=== PATIENT | male | born 1965 | race African-American/Black ===

== ENCOUNTER 2016-04-09 21:18 | Emergency (ER) | payer OTHER ==
[~2016-04-09] VITALS: Ht 182.9 cm; Wt 77.1 kg
[~2016-04-09 21:18] MED LIST: ALBU0.63 IH; FLUT1DIS IH; FLUT1DIS3 IH; PRED20TA PO
--- NOTE | 2016-04-09 21:57 | PHYS DOC ---
Past Medical History Past Medical History: COPD Past Surgical History: Appendectomy, Other Additional Past Surgical Histo: PINS R ARM Alcohol Use: Occasionally Drug Use: None Adult General Chief Complaint Chief Complaint: SHORTNESS OF BREATH HPI HPI Patient is a 51 year old female who presents with cough, shortness of breath. Patient reports since yesterday he has been coughing, feeling short of breath, wheezing, had fever, and generally achy. No clear inciting or mitigating factors. He has used his albuterol MDI at home with insufficient relief. He denies any chest pain. No other acute complaints. Review of Systems Review of Systems Constitutional: Fever Eyes: Denies change in visual acuity or eye pain HENT: Denies nasal congestion or sore throat Respiratory: Cough, shortness of breath Cardiovascular: Denies chest pain GI: Denies abdominal pain, nausea, vomiting, bloody stools or diarrhea : Denies dysuria or hematuria Musculoskeletal: Myalgias Integument: Denies rash or skin lesions Neurologic: Denies headache, focal weakness or sensory changes Current Medications Current Medications Current Medications Medications (Trade) Dose Ordered Sig/Laila Start Time Stop Time Status Last Admin Dose Admin Acetaminophen (Tylenol) 1,000 mg 1X ONCE 04/09/16 22:30 04/09/16 22:31 DC 04/09/16 22:15 1,000 MG Albuterol/ Ipratropium (Duoneb) 3 ml 1X ONCE 04/09/16 22:30 04/09/16 22:31 DC 04/09/16 23:33 3 ML Prednisone (Prednisone) 60 mg 1X ONCE 04/09/16 22:30 04/09/16 22:31 DC 04/09/16 22:15 60 MG Sodium Chloride (Iv Sodium Chloride 0.9% 1000ml Bag) 1,000 ml @ 1,000 mls/hr Q1H 04/09/16 21:57 04/10/16 00:14 DC 04/09/16 23:57 1,000 MLS/HR Allergies Allergies Allergies Coded Allergies Type Severity Reaction Last Updated Verified No Known Drug Allergies 01/26/13 No Physical Exam Physical Exam Constitutional: Well developed, well nourished, no acute distress, non-toxic appearance HENT: Normocephalic, atraumatic, bilateral external ears normal Eyes: EOMI, conjunctiva normal, no discharge Neck: Normal range of motion, no stridor Cardiovascular: Tachycardic, regular rhythm, no murmur Lungs & Thorax: Faint, diffuse expiratory wheezing, poor air movement; occasional cough Abdomen: Bowel sounds normal, soft, non-distended, no TTP Skin: Hot to touch, dry, no erythema, no rash Extremities: No obvious deformity, no edema Neurologic: Alert and oriented X 3, no gross deficits noted Psychologic: Affect normal, judgement normal, mood normal Current Patient Data Vital Signs Vital Signs Date Time Temp Pulse Resp B/P Pulse Ox O2 Delivery O2 Flow Rate FiO2 04/09/16 23:33 96 Room Air 04/09/16 21:40 101.4 124 18 156/75 101.4 Lab Values Laboratory Tests Test 04/09/16 21:32 04/09/16 21:45 04/09/16 23:23 White Blood Count 5.5x10^3/uL (4.0-11.0) Red Blood Count 5.13x10^6/uL (4.30-5.70) Hemoglobin 14.8g/dL (13.0-17.5) Hematocrit 45.2% (39.0-53.0) Mean Corpuscular Volume 88fL (79-100) Mean Corpuscular Hemoglobin 29pg (25-35) Mean Corpuscular Hemoglobin Concent 33g/dL (31-37) Red Cell Distribution Width 13.8% (11.5-14.5) Platelet Count 235x10^3/uL (140-400) Neutrophils (%) (Auto) 60% (31-73) Lymphocytes (%) (Auto) 23% (24-48) L Monocytes (%) (Auto) 11% (0-9) H Eosinophils (%) (Auto) 6% (0-3) H Basophils (%) (Auto) 1% (0-3) Neutrophils # (Auto) 3.3x10^3uL (1.8-7.7) Lymphocytes # (Auto) 1.3x10^3/uL (1.0-4.8) Monocytes # (Auto) 0.6x10^3/uL (0.0-1.1) Eosinophils # (Auto) 0.3x10^3/uL (0.0-0.7) Basophils # (Auto) 0.0x10^3/uL (0.0-0.2) Sodium Level 142mmol/L (136-145) Potassium Level 4.1mmol/L (3.5-5.1) Chloride Level 103mmol/L (98-107) Carbon Dioxide Level 26mmol/L (21-32) Anion Gap 13 (6-14) Blood Urea Nitrogen 10mg/dL (8-26) Creatinine 1.1mg/dL (0.7-1.3) Estimated GFR (Cockcroft-Gault) 85.7 BUN/Creatinine Ratio 9 (6-20) Glucose Level 114mg/dL (70-99) H Lactic Acid Level 1.3mmol/L (0.4-2.0) 0.8mmol/L (0.4-2.0) Calcium Level 9.5mg/dL (8.5-10.1) Total Bilirubin 0.4mg/dL (0.2-1.0) Aspartate Amino Transferase (AST) 20U/L (15-37) Alanine Aminotransferase (ALT) 22U/L (16-63) Alkaline Phosphatase 57U/L (46-116) Troponin I Quantitative < 0.017ng/mL (0.000-0.055) Total Protein 7.9g/dL (6.4-8.2) Albumin 4.2g/dL (3.4-5.0) Albumin/Globulin Ratio 1.1 (1.0-1.7) Influenza Type A Antigen Negative (NEGATIVE) Influenza Type B Antigen Negative (NEGATIVE) Laboratory Tests 04/09/16 21:32 Laboratory Tests 04/09/16 21:32 EKG EKG EKG (my read): sinus tachycardia, rate 115, normal axis, no acute ischemic changes Radiology/Procedures Radiology/Procedures CXR (my read): No significant change from prior Course & Med Decision Making Course & Med Decision Making Pertinent Labs and Imaging studies reviewed. (See chart for details) Patient is 51-year-old male who presents with cough, shortness of breath, fever. Appears to have COPD exacerbation, possibly related to upper respiratory infection. Will check EKG, chest x-ray, labs to evaluate. Breathing treatment, steroids, IV fluids ordered. Acetaminophen given for fever. EKG and chest x-ray results as above. Lab work unremarkable; white blood count, lactic acid, troponin all within normal limits. After breathing treatments, patient reports symptomatic improvement. Heart rate has normalized after 1 L fluids. I discussed option of admission versus outpatient management with close outpatient follow-up. Patient would like to go home at this time. Will discharge with prescription for steroid Oscar yoo. Given instructions for close follow-up and strict return precautions. Dragon Disclaimer Dragon Disclaimer This electronic medical record was generated, in whole or in part, using a voice recognition dictation system. Departure Departure Impression: Primary Impression: COPD exacerbation Additional Impression: Upper respiratory infection Disposition: HOME, SELF-CARE Condition: IMPROVED Referrals: MANNY FORMAN MD (PCP) Patient Instructions: Chronic Obstructive Pulmonary Disease Exacerbation, Upper Respiratory Infection, Adult Additional Instructions: Thank you for allowing us to provide care today in the Emergency Department. Take the provided medication as directed. You can take acetaminophen, naproxen, or ibuprofen for any further fever or aches. Follow the directions on the label. Also continue to use your albuterol inhaler as needed. Schedule a follow up appointment with your primary care doctor as soon as possible. Return promptly to the Emergency Department if you develop any new or concerning symptoms. Scripts Prednisone 50 Mg Tablet1 Tab PO DAILY #4 TAB Prov:SUJIT VILLARREAL MD 04/10/16 Azithromycin (Azithromycin Tablet)250 Mg Tablet1 Pkg PO UD #6 TAB Prov:SUJIT VILLARREAL MD 04/10/16 Problem Qualifiers SUJIT VILLARREAL MD Apr 09, 2016 21:57
[2016-04-09 22:15] LABS: BASO % 1 % (0-3); EOS % 6 % (0-3); HEMATOCRIT 45.2 % (39.0-53.0); HEMOGLOBIN 14.8 g/dL (13.0-17.5); LYMPH # 1.3 x10^3/uL (1.0-4.8); LYMPH % 23 % (24-48); MEAN CORPUSCULAR HEMOGLOBIN 29 pg (25-35); MEAN CORPUSCULAR HGB CONC 33 g/dL (31-37); MEAN CORPUSCULAR VOLUME 88 fL (79-100); MONO % 11 % (0-9); NEUT % 60 % (31-73); PLATELET COUNT 235 x10^3/uL (140-400); RED BLOOD COUNT 5.13 x10^6/uL (4.30-5.70); RED CELL DISTRIBUTION WIDTH 13.8 % (11.5-14.5); WHITE BLOOD COUNT 5.5 x10^3/uL (4.0-11.0)
[2016-04-09] MEDS: IV NORMAL SALINE 1000ML BAG 1,000 ML IV SCH ×3 (22:15→23:57)
[2016-04-09 22:29] LABS: CALCIUM 9.5 mg/dL (8.5-10.1); CREATININE 1.1 mg/dL (0.7-1.3); GFR 85.7; POTASSIUM 4.1 mmol/L (3.5-5.1)
[2016-04-09 22:30] LABS: OBC FLU VALID
[2016-04-09] MEDS ORDERED: PREDNISONE 20 MG TABLET PO ONE (22:30)
[2016-04-09] MEDS ORDERED: IPRATRPIUM/ALBUTEROL 0.5/2.5MG 3 ML NEBU. NEB ONE (22:30)
[2016-04-09] MEDS ORDERED: ACETAMINOPHEN 500 MG TABLET PO ONE (22:30)
[2016-04-09 22:43] LABS: ALBUMIN 4.2 g/dL (3.4-5.0); ALBUMIN/GLOBULIN RATIO 1.1 (1.0-1.7); TOTAL BILIRUBIN 0.4 mg/dL (0.2-1.0); TOTAL PROTEIN 7.9 g/dL (6.4-8.2)
[2016-04-10 00:13] VITALS: BP 106/69
[2016-04-10] MEDS ORDERED: AZIT250T6 PO (00:20)
[2016-04-10] MEDS ORDERED: PRED50TA PO (00:20)
--- NOTE | 2016-04-10 08:29 | RAD ---
Examination: 2 views of chest. History: History of cough, shortness of breath Comparison: 04/24/2014 Findings: The cardiomediastinal silhouette grossly appears unremarkable. Lucencies identified in the bilateral upper lobes likely emphysematous changes grossly appears similar to prior exam. Calcified lymph node identified in the left hilum. There is no acute infiltrate identified. Impression: Emphysematous changes identified in the lungs grossly similar to prior exam.
--- NOTE | 2016-04-10 10:27 | EKG ---
[facility] [address] [place] [address] Test Date: 2016-04-09 Test Time: 21:33:54 Pat Name: SAV MEREDITH Department: Room: Gender: M Extractions Technician: : 1965 Requested By: SUJIT VILLARREAL Order Number: [id number] Reading MD: Kunal Sylvester Measurements Intervals [place] Rate: 115 P: 22 OK: 126 QRS: 67 QRSD: 86 T: 48 QT: 292 QTc: 406 Interpretive Statements SINUS TACHYCARDIA OTHERWISE NORMAL ECG RI6.01 Unconfirmed report Compared to ECG 11/04/2013 23:52:14 Sinus rhythm no longer present Electronically Signed On 04-12-2016 14:01:21 LENS DOTTER by Kunal Sylvester
== END 2016-04-10 00:39 | disposition home or self-care (01) ==
LOC: ER 21:18
DX: J44.1 Chronic obstructive pulmonary disease with (acute) exacerbation (principal); J06.9 Acute upper respiratory infection, unspecified; R50.9 Fever, unspecified
CPT/HCPCS: 36415; 71020; 80053; 83605; 84484; 85027; 87040; 87804; 93005; 94640; 96360; 96361; 99285; J7030; J7512; J7620

== ENCOUNTER 2016-04-11 10:45 | Emergency (ER) | payer OTHER ==
[~2016-04-11] VITALS: Ht 175.3 cm; Wt 73.5 kg
[~2016-04-11 10:45] MED LIST changes: +AZIT250T6 PO; +PRED50TA PO
[2016-04-11] MEDS ORDERED: IPRATRPIUM/ALBUTEROL 0.5/2.5MG 3 ML NEBU. NEB ONE (11:15)
--- NOTE | 2016-04-11 11:33 | PHYS DOC ---
Past Medical History Past Medical History: COPD Past Surgical History: Appendectomy, Other Additional Past Surgical Histo: PINS R ARM Alcohol Use: Occasionally Drug Use: None Adult General Chief Complaint Chief Complaint: COUGH HPI HPI Patient is a 51 year old male currently being treated for COPD exacerbation with azithromycin and prednisone who presents by EMS for episode of dyspnea and coughing fit after laughing. States he has been having symptoms like this since last evaluation in the ER 2 days ago. He has been taking azithromycin and prednisone as prescribed. He has been using her home nebulizer intermittently as well as using home albuterol inhaler intermittently. He used home albuterol inhaler this morning and then called EMS because his symptoms were not resolving fast enough. Upon arrival of EMS, his symptoms had resolved but he wanted to be evaluated anyways. He denies new symptoms prior evaluation such as chest pain, hemoptysis, abdominal pain, nausea or vomiting, or diarrhea. Review of Systems Review of Systems Constitutional: Denies fever or chills [] Eyes: Denies change in visual acuity, redness, or eye pain [] HENT: Denies nasal congestion or sore throat [] Respiratory: Denies cough or shortness of breath [] Cardiovascular: No additional information not addressed in HPI [] GI: Denies abdominal pain, nausea, vomiting, bloody stools or diarrhea [] : Denies dysuria or hematuria [] Musculoskeletal: Denies back pain or joint pain [] Integument: Denies rash or skin lesions [] Neurologic: Denies headache, focal weakness or sensory changes [] Endocrine: Denies polyuria or polydipsia [] Current Medications Current Medications Current Medications Medications (Trade) Dose Ordered Sig/Laila Start Time Stop Time Status Last Admin Dose Admin Albuterol/ Ipratropium (Duoneb) 3 ml 1X ONCE 04/11/16 11:15 04/11/16 11:16 DC 04/11/16 11:33 3 ML Allergies Allergies Allergies Coded Allergies Type Severity Reaction Last Updated Verified No Known Drug Allergies 01/26/13 No Physical Exam Physical Exam Constitutional: Well developed, well nourished, no acute distress, non-toxic appearance. [] HENT: Normocephalic, atraumatic, bilateral external ears normal, oropharynx moist, no oral exudates, nose normal. [] Eyes: PERRLA, EOMI. [] Neck: Normal range of motion, supple, no stridor. [] Cardiovascular:Heart rate regular rhythm [] Lungs & Thorax: Bilateral breath sounds clear to auscultation; has bronchospastic cough that is dry [] Abdomen: Bowel sounds normal, soft, no tenderness. [] Skin: Warm, dry, no erythema, no rash. [] Back: Normal range of motion. [] Extremities: No tenderness, ROM intact, no edema, no palpable cord. [] Neurologic: Alert and oriented X 3, normal motor function, normal sensory function, no focal deficits noted. [] Psychologic: Affect normal, judgement normal, mood normal. [] Current Patient Data Vital Signs Vital Signs Date Time Temp Pulse Resp B/P Pulse Ox O2 Delivery O2 Flow Rate FiO2 04/11/16 12:30 90 22 135/84 94 04/11/16 11:35 Room Air 04/11/16 10:53 97.7 97.7 Course & Med Decision Making Course & Med Decision Making Pertinent Labs and Imaging studies reviewed. (See chart for details) He feels better after neb here and would like to go home. Discussed proper use of home medications. Return precautions given. He understands and agrees with plan. Dragon Disclaimer Dragon Disclaimer This electronic medical record was generated, in whole or in part, using a voice recognition dictation system. Departure Departure Impression: Primary Impression: COPD exacerbation Disposition: 01 HOME, SELF-CARE Condition: STABLE Referrals: MANNY FORMAN MD (PCP) Patient Instructions: Chronic Obstructive Pulmonary Disease Exacerbation, Easy- to-Read Additional Instructions: Follow-up with your primary care doctor within one week. Return for any concerns. Mat HERNANDEZ MD Apr 11, 2016 11:33
[2016-04-11 12:30] VITALS: BP 135/84
== END 2016-04-11 13:00 | disposition home or self-care (01) ==
LOC: ER 10:45
DX: J44.1 Chronic obstructive pulmonary disease with (acute) exacerbation (principal)
CPT/HCPCS: 94250; 94640; 99283; J7620

== ENCOUNTER 2017-08-04 02:20 | Emergency (ER) | payer OTHER ==
[2017-08-04] MEDS: ALBUTEROL SULFATE 2.5 MG/3 ML NEBU. CONT NEB (02:44)
[2017-08-04] MEDS: IPRATRPIUM/ALBUTEROL 0.5/2.5MG 3 ML NEBU. NEB (02:44)
[2017-08-04 02:50] LABS: ADD MAN DIFF? NO
[2017-08-04] MEDS: methylPREDNISolone SOD SUCC PF 125 MG/2 ML VIAL. IV (02:50)
[2017-08-04] MEDS: IV NORMAL SALINE 1000ML BAG 1,000 ML IV (02:50)
[2017-08-04 02:52] LABS: BASO # 0.1 x10^3/uL (0.0-0.2); BASO % 1 % (0-3); EOS # 0.8 x10^3/uL (0.0-0.7); EOS % 10 % (0-3); HEMOGLOBIN 14.8 g/dL (13.0-17.5); LYMPH # 2.8 x10^3/uL (1.0-4.8); LYMPH % 39 % (24-48); MEAN CORPUSCULAR HEMOGLOBIN 30 pg (25-35); MEAN CORPUSCULAR HGB CONC 34 g/dL (31-37); MEAN CORPUSCULAR VOLUME 88 fL (79-100); MONO # 0.7 x10^3/uL (0.0-1.1); MONO % 9 % (0-9); NEUT % 41 % (31-73); PLATELET COUNT 305 x10^3/uL (140-400); RED BLOOD COUNT 5.03 x10^6/uL (4.30-5.70); RED CELL DISTRIBUTION WIDTH 13.4 % (11.5-14.5); WHITE BLOOD COUNT 7.3 x10^3/uL (4.0-11.0)
[2017-08-04 03:02] LABS: ANION GAP 8 (6-14); BLOOD UREA NITROGEN 17 mg/dL (8-26); BUN/CREATININE RATIO 15 (6-20); CALCIUM 9.4 mg/dL (8.5-10.1); CARBON DIOXIDE 29 mmol/L (21-32); CHLORIDE 104 mmol/L (98-107); CREATININE 1.1 mg/dL (0.7-1.3); GFR 85.4; GLUCOSE 116 mg/dL (70-99); POTASSIUM 3.5 mmol/L (3.5-5.1); SODIUM 141 mmol/L (136-145)
[2017-08-04 03:08] LABS: ALBUMIN 3.7 g/dL (3.4-5.0); ALBUMIN/GLOBULIN RATIO 0.9 (1.0-1.7); ALK PHOS 66 U/L (46-116); ALT (SGPT) 16 U/L (16-63); AST (SGOT) 12 U/L (15-37); TOTAL BILIRUBIN 0.3 mg/dL (0.2-1.0); TOTAL PROTEIN 7.7 g/dL (6.4-8.2)
[2017-08-04 03:10] LABS: TROPONINI < 0.017 ng/mL (0.000-0.055)
[2017-08-04 03:16] LABS: NT-PRO BNP 25 pg/mL (0-124)
[2017-08-04 03:16] LABS: CKMB INDEX 1.1 % (0-4); CREATINE KINASE 87 U/L (39-308)
[2017-08-04] MEDS: IOHEXOL 300 MG/ML 100ML VIAL. IV (03:25)
[2017-08-04] MEDS ORDERED: CONTRAST GIVEN. MC (03:30)
== END 2017-08-04 05:04 | disposition home or self-care (01) ==
LOC: ER 02:20
DX: J44.1 Chronic obstructive pulmonary disease with (acute) exacerbation (principal); Z87.891 Personal history of nicotine dependence
CPT/HCPCS: 36415; 71045; 71275; 80053; 82553; 83880; 84484; 85025; 93005; 94644; 96374; 99285-25; J2930; J7030; J7613; J7620; Q9967

== ENCOUNTER → 2017-11-04 | Outpatient (CLI) | payer OTHER ==
[2017-08-04 04:51] VITALS: BP 132/90
--- NOTE | 2017-11-04 18:02 | RAD ---
CT CHEST WO CONTRAST Indication: LUNG NODULE, PRIOR SENT Exposure: One or more of the following individualized dose reduction techniques were utilized for this examination: 1. Automated exposure control 2. Adjustment of the mA and/or kV according to patient size 3. Use of iterative reconstruction technique. Comparison: CTA chest August 04, 2017. Contrast: None FINDINGS: Vascular structures: Limited exam without contrast. Ascending aorta is mildly ectatic, measuring 4.3 cm, difficult to compare with prior angiographic study, but appears similar. Lymph nodes: Small mediastinal and axillary lymph nodes appears similar, with significant change. Heterogeneous density within the thymic region is again identified and stable. Thyroid gland:Visualized aspect is unremarkable. Heart: No significant pericadial effusion. Esophagus: Unremarkable Pleural spaces: No significant effusion Lungs: Severe emphysematous disease is again identified. Spiculated opacity in the right upper lobe is unchanged in size and morphology since the previous exam. No new dominant mass is identified. No evidence of acute infiltrate. Trachea and central airways: Patent Spine: Mild degenerative change. Bones: No destructive process Upper abdomen: Slices obtained through the upper most abdomen are limited by the noncontrast technique. No obvious acute findings. Impression: 1. The spiculated mass in the right upper lobe demonstrates no significant increase in size or change in morphology since the prior exam. It appears that the patient has had a PET/CT scan on September 01, 2017, but the results from that exam are not available at the time of this interpretation. Please correlate with those results. 2. Small mediastinal and axillary lymph nodes, and heterogeneous anterior mediastinal densities, are stable since the prior study. 3. Severe emphysema again identified. 4. Mild ascending aortic ectasia, measuring 4.3 cm transverse diameter, is approximately stable as compared with prior angiographic study. Electronically signed by: Sameer Mckeon MD (11/04/2017 5:59 PM) [facility]
== END | disposition home or self-care (01) ==
LOC: CT 11:07
PROVIDERS: ATTEND Internal Medicine Critical Care Medicine
DX: J43.9 Emphysema, unspecified (principal); I77.810 Thoracic aortic ectasia; R59.0 Localized enlarged lymph nodes; Z87.891 Personal history of nicotine dependence; Z90.49 Acquired absence of other specified parts of digestive tract
CPT/HCPCS: 71250

== ENCOUNTER → 2017-11-08 | Outpatient (CLI) | payer OTHER ==
[2017-08-04 04:51] VITALS: BP 132/90
--- NOTE | 2017-11-08 16:38 | RAD ---
Thyroid ultrasound 11/08/2017 INDICATION: Thyroid nodule identified on PET/CT August 02, 2017. Discussion: Thyroid ultrasound was performed. Static images are submitted to PACS. Diffusely enlarged. Right thyroid measures 6.9 x 2.3 x 2.4 cm. Left thyroid measures 6.1 x 2.9 x 2.0 cm. Thyroid isthmus measures approximately 0.6 cm in thickness. Within the inferior right thyroid gland there is a predominantly solid 1.3 cm nodule. No microcalcifications are definitive internal blood flow seen. Just superior to this there is a 7 mm solid nodule with small areas of blood flow on color Doppler imaging. No calcification is identified. The left thyroid gland contains no focal nodules. IMPRESSION: 1. 1.3 cm solid nodule, inferior thyroid gland. Incidentally discovered PET avid thyroid nodules have been estimated 30-40 % rate of malignancy. Fine needle aspiration recommended. 2. 7 mm nodule, inferior right thyroid gland 3. Diffuse thyromegaly Electronically signed by: Romeo Forbes MD (11/08/2017 4:34 PM) [id number]
== END | disposition home or self-care (01) ==
LOC: US 15:39
PROVIDERS: ATTEND Internal Medicine
DX: E04.2 Nontoxic multinodular goiter (principal); J43.9 Emphysema, unspecified; Z87.891 Personal history of nicotine dependence; Z90.49 Acquired absence of other specified parts of digestive tract
CPT/HCPCS: 76536

== ENCOUNTER → 2017-11-21 | Outpatient (CLI) | payer OTHER ==
[2017-08-04 04:51] VITALS: BP 132/90
--- NOTE | 2017-11-21 14:33 | RAD ---
Ultrasound-guided fine-needle thyroid biopsy Indications: 1.3 cm solid nodule of the mid to lower aspect of the right lobe of the thyroid gland. Hypermetabolic activity seen here on recent PET scan. Procedure: The procedure and possible complications including bleeding and infection were explained. The patient provided both verbal and written consent. A timeout was performed which confirmed the name of the patient and date of and type of procedure and the side of the procedure. Sonography demonstrated a 1.3 cm hypoechoic solid nodule within the posterior aspect of the mid to lower aspect of the right lobe of the thyroid gland. This corresponds to the PET finding dated on September 01, 2017. An appropriate skin raleigh was placed over the nodule. The right side of the neck was prepped with ChloraPrep and draped in the usual sterile fashion. A total of 3 cc of 1% lidocaine was utilized for local anesthesia. Using sterile technique and ultrasound guidance, 4 separate 25-gauge fine-needle aspirations of the nodule was performed. Sonographic spot images of each biopsy were performed. Each sample was given to the document control associate for further processing at the time of the biopsy. Postbiopsy scanning demonstrates no significant hematoma. The patient tolerated the procedure well without complication. IMPRESSION: Ultrasound-guided fine-needle aspiration of the 1.3 cm nodule of the mid to lower aspect of the right lobe of the thyroid gland was performed without complication. Pathology is pending. Follow-up will be with the patient's physician.
--- NOTE | 2017-11-23 17:10 | PATHOLOGY ---
Note [facility] Accession Number: [id number] TESTS RESULT FLAG UNITS REF RANGE LAB Clinician Provided Cytology Information No. of containers..01 Other (Miscellaneous) Source: RIGHT THYROID DIAGNOSIS: RIGHT THYROID INCONCLUSIVE. BETHESDA CATEGORY III. ATYPIA OF UNDETERMINED SIGNIFICANCE. SPECIMEN CONSISTS OF FEW CLUSTERS OF FOLLICULAR EPITHELIAL CELLS, ABUNDANT HURTHLE CELLS WITH ATYPIA, AND FEW HEMOSIDERIN LADEN MACROPHAGES. THIS INTERPRETATION INCLUDES EVALUATION OF A CELL BLOCK. COMMENT: THE DIFFERENTIAL DIAGNOSIS INCLUDES HURTHLE CELL ADENOMATOID NODULE, HURTHLE CELL NEOPLASM, AND LESS LIKELY HASHIMOTOS THYROIDITIS. THE CASE IS ALSO EXANMINED BY DR. EDWARDS, CYTOPATHOLOGIST, WHO CONCURS WITH THE DIAGNOSIS. Pathologist ICD10: 02 R89.6, D34 Signed out by: Mango Wei MD, Pathologist NPI- [id number] Performed by: Franny Blevins, Painter Drum ([facility]) Gross description: 01 30ML, RED, CLEAR /LCS FLAG LEGEND: L-Low Normal,H-High Normal,LL-Alert Low,HH-Alert High <-Panic Low,>-Panic High,A-Abnormal,AA-Critical Abnormal Performed at: [place] [facility] [address] [place] [address] Matthew Bryant MD, 02 [facility] [address] [place] [address] Mango Wei MD, Specimen Comment: A courtesy copy of this report has been sent to Specimen Comment: [phone]. Specimen Comment: Report sent to Performed at: [address], [place], [place] [id number] MD Matthew Bryant MD Phone: [phone]
== END | disposition home or self-care (01) ==
LOC: US 13:32
PROVIDERS: ATTEND Internal Medicine
DX: E04.1 Nontoxic single thyroid nodule (principal)
CPT/HCPCS: 10022; 76942; 88173; 88305

== ENCOUNTER 2018-01-26 08:57 | Observation (INO) | payer OTHER ==
[2018-01-26] VITALS (8 sets, daily range): BP systolic 127–145; BP diastolic 82–97
[~2018-01-26] VITALS: Ht 175.3 cm; Wt 78.7 kg
[~2018-01-26 08:57] MED LIST changes: +BENZOIN TP ONE; +HYDROmorphone 2 MG/ML VIAL IV PRN; +IV RINGERS,LACTATED 1000ML 1,000 ML IV SCH; +LIDOCAINE 1% PF 2 ML VIAL. ID PRN; +LIDOCAINE 2% PF Vial for OR 5 ML VIAL. ONE; +MORPHINE SULFATE 2 MG/ML VIAL. IV PRN; +ONDANSETRON PF 4 MG/2 ML VIAL. IV PRN; +PROCHLORPERAZINE 10 MG/2 ML VIAL. IV PRN; +PROPOFOL 20 ML IV ONE; +ROCURONIUM 50 MG/5 ML VIAL. ONE; +TIOT18CA IH; +fentaNYL PF VIAL 100 MCG/2 ML VIAL IV PRN
[2018-01-26] MEDS ORDERED: ALBU2.5V8 INH (09:22)
[2018-01-26] MEDS ORDERED: MONT10TA9 PO (09:22)
[2018-01-26 10:04] LABS: CALCIUM 9.7 mg/dL (8.5-10.1); GFR 95.3; POTASSIUM 4.1 mmol/L (3.5-5.1)
--- NOTE | 2018-01-26 10:05 | PREOP HP ---
DATE OF SERVICE: 01/26/2018 HISTORY OF PRESENT ILLNESS: The patient sent to me by Dr. Henry because of a thyroid mass. Apparently, this was found on physical examination. He had essentially no symptoms from it. PAST MEDICAL HISTORY: Shows normal childhood diseases. He has no high blood pressure, cancer, TB or asthma, but does have COPD from smoking. He stopped about 2 years ago. ALLERGIES: He has no allergies. PAST SURGICAL HISTORY: Included appendicitis when he was a child and a broken arm when he was a child, his right arm and had surgery for that. No other surgery. MEDICATIONS: Basically, he takes no medicine. FAMILY HISTORY: Positive in that he has a sister that had a goiter. He is not sure whether it was cancer or not, she had thyroid surgery. No other family history of thyroid problems or other difficulties. REVIEW OF SYSTEMS: Negative except for being tired and he does have trouble breathing with exertion. PHYSICAL EXAMINATION: GENERAL: Shows male in no acute distress, oriented and clear. HEAD, EYES, EARS, NOSE AND THROAT: Basically normal except for the thyroid, there may have been a little swelling on the right thyroid, but no definite mass could be palpated. CHEST: Clear though he did have some coughing when he took deep breath, it did clear up, however. HEART: Had a rate of 77 beats per minute and was regular. No murmurs or friction rubs were noted. ABDOMEN: Grossly normal. EXTREMITIES: Grossly normal. IMPRESSION: Thyroid mass. PLAN: It should be noted that the patient did have a thyroid scan, which showed a thyroid mass and had a needle biopsy, which was indeterminate and maybe could show malignancies. We will therefore work him up and do a thyroidectomy as necessary. JEANNE HAMILTON MD DR: ASAD/enzo JOB#: [id number] / [id number]
[2018-01-26] MEDS ORDERED: fentaNYL PF VIAL 100 MCG/2 ML VIAL ONE ×4 (10:06→15:29)
[2018-01-26 10:10] LABS: ALBUMIN 3.6 g/dL (3.4-5.0); ALBUMIN/GLOBULIN RATIO 0.8 (1.0-1.7); TOTAL BILIRUBIN 0.7 mg/dL (0.2-1.0); TOTAL PROTEIN 7.9 g/dL (6.4-8.2)
--- NOTE | 2018-01-26 10:10 | PDOC ---
SURGICAL PROGRESS NOTE Subjective No change in dictated H&P. Vital Signs Vital Signs Date Time Temp Pulse Resp B/P (MAP) Pulse Ox O2 Delivery O2 Flow Rate FiO2 01/26/18 09:28 97.9 98 132/86 97 Room Air 97.9 01/26/18 09:23 20 Labs Laboratory Tests Test 01/26/18 09:20 Sodium Level 139 mmol/L (136-145) Potassium Level 4.1 mmol/L (3.5-5.1) Chloride Level 101 mmol/L (98-107) Carbon Dioxide Level 28 mmol/L (21-32) Anion Gap 10 (6-14) Blood Urea Nitrogen 10 mg/dL (8-26) Creatinine 1.0 mg/dL (0.7-1.3) Estimated GFR (Cockcroft-Gault) 95.3 BUN/Creatinine Ratio 10 (6-20) Glucose Level 90 mg/dL (70-99) Calcium Level 9.7 mg/dL (8.5-10.1) Laboratory Tests Test 01/26/18 09:20 Sodium Level 139 mmol/L (136-145) Potassium Level 4.1 mmol/L (3.5-5.1) Chloride Level 101 mmol/L (98-107) Carbon Dioxide Level 28 mmol/L (21-32) Anion Gap 10 (6-14) Blood Urea Nitrogen 10 mg/dL (8-26) Creatinine 1.0 mg/dL (0.7-1.3) Estimated GFR (Cockcroft-Gault) 95.3 BUN/Creatinine Ratio 10 (6-20) Glucose Level 90 mg/dL (70-99) Calcium Level 9.7 mg/dL (8.5-10.1) JEANNE HAMILTON MD Jan 26, 2018 10:10
--- NOTE | 2018-01-26 10:12 | PDOC ---
SURGICAL PROGRESS NOTE Subjective Op Note: Surgeon.....................................Ken Pre op diag................................right thyroid tumor of uncertain behavior Post op diag..............................same Anesthesia................................general Procedure.................................subtotal thyroidectomy Blood loss................................25cc Fluids......................................see anesthesia sheet Drains......................................none Condition.................................satisfactory Vital Signs Vital Signs Date Time Temp Pulse Resp B/P (MAP) Pulse Ox O2 Delivery O2 Flow Rate FiO2 01/26/18 09:28 97.9 98 132/86 97 Room Air 97.9 01/26/18 09:23 20 Labs Laboratory Tests Test 01/26/18 09:20 Sodium Level 139 mmol/L (136-145) Potassium Level 4.1 mmol/L (3.5-5.1) Chloride Level 101 mmol/L (98-107) Carbon Dioxide Level 28 mmol/L (21-32) Anion Gap 10 (6-14) Blood Urea Nitrogen 10 mg/dL (8-26) Creatinine 1.0 mg/dL (0.7-1.3) Estimated GFR (Cockcroft-Gault) 95.3 BUN/Creatinine Ratio 10 (6-20) Glucose Level 90 mg/dL (70-99) Calcium Level 9.7 mg/dL (8.5-10.1) Laboratory Tests Test 01/26/18 09:20 Sodium Level 139 mmol/L (136-145) Potassium Level 4.1 mmol/L (3.5-5.1) Chloride Level 101 mmol/L (98-107) Carbon Dioxide Level 28 mmol/L (21-32) Anion Gap 10 (6-14) Blood Urea Nitrogen 10 mg/dL (8-26) Creatinine 1.0 mg/dL (0.7-1.3) Estimated GFR (Cockcroft-Gault) 95.3 BUN/Creatinine Ratio 10 (6-20) Glucose Level 90 mg/dL (70-99) Calcium Level 9.7 mg/dL (8.5-10.1) JEANNE HAMILTON MD Jan 26, 2018 10:12
[2018-01-26] MEDS ORDERED: DESFLURANE > 120 MINUTES IH ONE (10:32)
[2018-01-26] MEDS ORDERED: DEXAMETHASONE SOD PHOS 20 MG/5 ML VIAL. ONE (10:32)
[2018-01-26] MEDS ORDERED: PHENYLEPHRINE in 0.9% NACL PF 1 MG/10 ML SYRINGE. IV ONE (10:55)
[2018-01-26] MEDS ORDERED: ONDANSETRON PF 4 MG/2 ML VIAL. ONE (11:38)
[2018-01-26] MEDS ORDERED: PROPOFOL 100 ML IV ONE (11:53)
[2018-01-26] MEDS ORDERED: REMIFENTANIL 2 MG VIAL. IV ONE (11:54)
[2018-01-26] MEDS ORDERED: PHENYLEPHRINE 10 MG/ML VIAL. ONE (12:04)
[2018-01-26] MEDS ORDERED: ePHEDrine PF IN SALINE 50 MG/5 ML DISP.SYRIN IV ONE (12:13)
[2018-01-26] MEDS ORDERED: GLYCOPYRROLATE 1 MG/5 ML VIAL. ONE (12:17)
[2018-01-26] MEDS ORDERED: GELATIN SPONGE SIZE 100. ONE (14:04)
[2018-01-26] MEDS ORDERED: THROMBIN TOPICAL 5,000 UNIT VIAL. ONE ×2 (14:12→14:13)
[2018-01-26] MEDS ORDERED: THROMBIN TOPICAL 20,000 UNIT SPRAY.SYRN KIT TP ONE (14:15)
[2018-01-26] MEDS ORDERED: 0.9 % SODIUM CHLORIDE 10 ML DISP.SYRIN. IV PRN (15:15)
[2018-01-26] MEDS ORDERED: MAGNESIUM HYDROXIDE 2,400 MG/30 ML ORAL.SUSP. PO PRN (15:15)
[2018-01-26] MEDS ORDERED: oxyCODONE/APAP 5/325 1 TAB TABLET PO PRN (15:15)
[2018-01-26] MEDS ORDERED: ONDANSETRON PF 4 MG/2 ML VIAL. IV PRN (15:15)
[2018-01-26] MEDS: fentaNYL PF VIAL 100 MCG/2 ML VIAL IV PRN ×2 (15:33→16:12)
[2018-01-26] MEDS: POTASSIUM CL 20MEQ-0.45% NACL 1,000 ML IV SCH (17:37)
--- NOTE | 2018-01-26 18:22 | OP ---
DATE OF SURGERY: 01/26/2018 SURGEON: Nils Hamilton MD PREOPERATIVE DIAGNOSIS: Right thyroid mass of uncertain behavior. POSTOPERATIVE DIAGNOSIS: Right thyroid mass of uncertain behavior. ANESTHESIA: General. PROCEDURE: Subtotal thyroidectomy with excision of the complete thyroid on the right and most of it on the left. TECHNIQUE: Under general anesthesia the patient was properly prepped and draped in a routine fashion. A small incision was made about a centimeter or so above the sternal notch about 2 inches in length. This was carried through the skin with a 15 blade. It should be noted that due to the dissection and the need to see better on the right we did extend the incision during the case a little more on the right side. At any rate, we made the incision with a 15 blade, got down to the cremasterics, divided those with cautery and then developed a flap superiorly over the strap muscles on either side up to the larynx and then using 2-0 silk sutured it up to the area above the incision at the neck and chin. The inferior flap was developed also with finger dissection down to the sternal notch. We then slowly went through the midline dividing the fascia there down to the thyroid. We did the right side first as we went under the strap muscles and just on the thyroid and through the fascia over the thyroid. We then slowly dissected the inferior thyroid vessels and encircled them, tied them and divided them with Harmonic scalpel. We freed this up and then did a similar procedure for the superior thyroidal vessels on the right. The lateral thyroid vein was identified. It was likewise encircled, tied and divided. The thyroid was then flipped more superiorly and to the patient's left and we then slowly got down to the trachea. We did not damage the recurrent laryngeal nerve. It was interesting in that the surgery took a lot longer, about 2 hours, as the mass of the thyroid could be palpated and was posterior right against the trachea close to the nerve. Therefore, we went very slowly using the NIMS to make certain not to damage the nerve or any other structures. Parathyroids were not grossly identified. At the mid portion of the thyroid there was a mass, which sort of popped out and it was attached to the thyroid before it fell out. We sent it to the lab for permanent section. It was a little over a centimeter in size and another mass posterior, which was quite hard, was identified and also excised along with the thyroid. This more superior one was clamped, tied and sent to the lab. It was piecemeal done. There was some bleeding from some of the vessels, which was controlled with ligatures. As stated before, we used the NIMS making certain not to damage the recurrent laryngeal or other nerves. The thyroid was then taken off the trachea using Harmonic scalpel, reflected over in the left thyroidal inferior and superior vessels were serially ligated. We then used mostly the Harmonic scalpel to slowly divide the thyroid leaving just a remnant on the left side making certain not to damage the nerve. This having been done, we inspected the area. There was no further bleeding. We did use Gelfoam and thrombin, placed it there then removed it. There was no bleeding and as such the procedure was then terminated. We did take our time on the right side, however, and that is why this case took about 2 hours. We then inspected the area, all was satisfactory, and we approximated the midline fascia using interrupted 4-0 Vicryl. We then washed the wound out with saline, cut the sutures holding the superior flap up, cephalad flap up and then closed the cremasterics with interrupted 5-0 Vicryl and then closed the skin using interrupted 6-0 nylon. The procedure was then terminated and sterile dressing was applied. The blood loss at the end of the procedure was probably 25-35 mL. Fluids given can be obtained from the anesthesia sheet. There were no drains used and the condition of the patient was satisfactory as he was returned to recovery room. NILS HAMILTON MD DR: ASAD/enzo JOB#: [id number] / [id number]
[2018-01-26] MEDS: FAMOTIDINE 20 MG/2 ML VIAL IVP SCH (21:05)
[2018-01-26] MEDS: DOCUSATE SODIUM 100 MG CAPSULE. PO SCH (21:05)
[2018-01-27 03:00] VITALS: BP 118/81
[2018-01-27] MEDS: POTASSIUM CL 20MEQ-0.45% NACL 1,000 ML IV SCH ×3 (06:31→14:10)
[2018-01-27 07:00] VITALS: BP 129/80
[2018-01-27 08:19] LABS: CALCIUM 9.3 mg/dL (8.5-10.1); GFR 95.3; POTASSIUM 4.2 mmol/L (3.5-5.1)
[2018-01-27 08:24] LABS: ALBUMIN/GLOBULIN RATIO 0.8 (1.0-1.7); TOTAL BILIRUBIN 0.6 mg/dL (0.2-1.0)
[2018-01-27] MEDS: DOCUSATE SODIUM 100 MG CAPSULE. PO SCH ×2 (08:37→09:00)
[2018-01-27] MEDS: FAMOTIDINE 20 MG/2 ML VIAL IVP SCH (08:41)
[2018-01-27 11:00] VITALS: BP 120/83
--- NOTE | 2018-01-27 14:00 | PDOC ---
SURGICAL PROGRESS NOTE Subjective POD#1 doing well with normal voice and is up and about without problems and little pain. CA suzy;l and other lab OK. Home today and instructions give and I will se him in 7-10 days. Wound without complications as dressing changed. instructions given. Percocet for pain and will start Synthroid in 10 days. Summary dictated. Vital Signs Vital Signs Date Time Temp Pulse Resp B/P (MAP) Pulse Ox O2 Delivery O2 Flow Rate FiO2 01/27/18 11:00 98.0 98 18 120/83 (95) 92 Room Air 98.0 01/27/18 03:00 3.0 I&O Intake and Output 01/27/18 07:01 Intake Total 2400 ml Output Total 1925 ml Balance 475 ml Intake IV Total 2400 ml Output Urine Total 1850 ml Estimated Blood Loss 75 ml Labs Laboratory Tests Test 01/26/18 09:20 01/27/18 07:23 Sodium Level 139 mmol/L (136-145) 138 mmol/L (136-145) Potassium Level 4.1 mmol/L (3.5-5.1) 4.2 mmol/L (3.5-5.1) Chloride Level 101 mmol/L (98-107) 101 mmol/L (98-107) Carbon Dioxide Level 28 mmol/L (21-32) 30 mmol/L (21-32) Anion Gap 10 (6-14) 7 (6-14) Blood Urea Nitrogen 10 mg/dL (8-26) 13 mg/dL (8-26) Creatinine 1.0 mg/dL (0.7-1.3) 1.0 mg/dL (0.7-1.3) Estimated GFR (Cockcroft-Gault) 95.3 95.3 BUN/Creatinine Ratio 10 (6-20) 13 (6-20) Glucose Level 90 mg/dL (70-99) 93 mg/dL (70-99) Calcium Level 9.7 mg/dL (8.5-10.1) 9.3 mg/dL (8.5-10.1) Total Bilirubin 0.7 mg/dL (0.2-1.0) 0.6 mg/dL (0.2-1.0) Aspartate Amino Transf (AST/SGOT) 40 U/L (15-37) 33 U/L (15-37) Alanine Aminotransferase (ALT/SGPT) 24 U/L (16-63) 22 U/L (16-63) Alkaline Phosphatase 52 U/L (46-116) 41 U/L (46-116) Total Protein 7.9 g/dL (6.4-8.2) 7.0 g/dL (6.4-8.2) Albumin 3.6 g/dL (3.4-5.0) 3.0 g/dL (3.4-5.0) Albumin/Globulin Ratio 0.8 (1.0-1.7) 0.8 (1.0-1.7) Laboratory Tests Test 01/27/18 07:23 Sodium Level 138 mmol/L (136-145) Potassium Level 4.2 mmol/L (3.5-5.1) Chloride Level 101 mmol/L (98-107) Carbon Dioxide Level 30 mmol/L (21-32) Anion Gap 7 (6-14) Blood Urea Nitrogen 13 mg/dL (8-26) Creatinine 1.0 mg/dL (0.7-1.3) Estimated GFR (Cockcroft-Gault) 95.3 BUN/Creatinine Ratio 13 (6-20) Glucose Level 93 mg/dL (70-99) Calcium Level 9.3 mg/dL (8.5-10.1) Total Bilirubin 0.6 mg/dL (0.2-1.0) Aspartate Amino Transf (AST/SGOT) 33 U/L (15-37) Alanine Aminotransferase (ALT/SGPT) 22 U/L (16-63) Alkaline Phosphatase 41 U/L (46-116) Total Protein 7.0 g/dL (6.4-8.2) Albumin 3.0 g/dL (3.4-5.0) Albumin/Globulin Ratio 0.8 (1.0-1.7) JEANNE HAMILTON MD Jan 27, 2018 14:00
[2018-01-27 15:45] LABS: BASO % 0 % (0-3); EOS % 0 % (0-3); HEMATOCRIT 41.2 % (39.0-53.0); HEMOGLOBIN 13.8 g/dL (13.0-17.5); LYMPH # 1.4 x10^3/uL (1.0-4.8); LYMPH % 16 % (24-48); MEAN CORPUSCULAR HEMOGLOBIN 30 pg (25-35); MEAN CORPUSCULAR HGB CONC 33 g/dL (31-37); MEAN CORPUSCULAR VOLUME 89 fL (79-100); MONO % 12 % (0-9); NEUT # 5.9 x10^3uL (1.8-7.7); NEUT % 71 % (31-73); PLATELET COUNT 318 x10^3/uL (140-400); RED BLOOD COUNT 4.64 x10^6/uL (4.30-5.70); RED CELL DISTRIBUTION WIDTH 15.3 % (11.5-14.5); WHITE BLOOD COUNT 8.4 x10^3/uL (4.0-11.0)
--- NOTE | 2018-01-27 16:54 | DS ---
DATE OF DISCHARGE: 01/27/2018 HOSPITAL COURSE: The patient on the day of admission had a subtotal thyroidectomy for tumor of the right thyroid. It was a difficult dissection as the tumor was posterior next to the trachea and the nerve. He did well as the surgery took a little longer just to be careful no damage was done. Postoperatively now, he is postop day #1, his laboratory data is normal. His calcium is normal. He has no difficulties up and about without difficulty. He has had very little pain. His voice is normal. He has no difficulties. The dressing is changed. There is no evidence of hematoma formation or infection or other problems as all is well. Instructions have been given for them to either can leave the wound open and cover as they desire. He may get it wet after 24 hours, and we will see him back in 10 days, they will call and make an appointment. He understands sutures need to be removed. He is given Percocet 7.5/325 for pain, but I have suggested that he do not take this and take several [id number] if the pain is not too bad. We will start him on Synthroid at a later date, but not at this point. Therefore, he will be discharged today, and we will see him as stated before. IMPRESSION: 1. Tumor, right thyroid lobe. 2. Chronic obstructive pulmonary disease. JEANNE HAMILTON MD DR: ASAD/enzo JOB#: [id number] / [id number]
--- NOTE | 2018-02-01 09:07 | PATHOLOGY ---
[facility] Accession Number: [id number] . 01 Material submitted: . PART A: PROXIMAL THYROID PART B: TUMOR THYROID PART C: SUBTOTAL THYROID . 01 Clinical history: . Thyroid mass . 02 Diagnosis: A. "Proximal thyroid", biopsy: - Thyroid parenchyma with focal fibrosis. . B. "Thyroid tumor", excision: - Hurthle cell adenoma, 1.3 cm. . C. "Subtotal thyroid", removal: - Colloid nodules, right and left lobes, focal, tiny. - Isthmus area with tiny focal area of fibrosis. (SKM/db; 01/30/2018) LBQ/01/30/2018 . 02 Electronically signed: . Rangel Bhakta MD, Pathologist NPI- [id number] . 01 Gross description: . A. The specimen is received in formalin, labeled "Mc, Jad, proximal thyroid" and consists of 2 segments of leonardo-brown tissue measuring 0.7 x 0.5 x 0.3 cm and 0.9 x 0.3 x 0.2 cm. They are entirely submitted in A1. . B. The specimen is received in formalin, labeled "Mc, Jad, tumor thyroid" and consists of a brown nodule weighing 1 g and measuring 1.3 x 1.0 x 0.8 cm. It is inked black, serially sectioned, and entirely submitted in B1. . C. The specimen is received in formalin, labeled "Mc, Jad, subtotal thyroid" and consists of a 39 g total thyroid. The right lobe is markedly larger than the left lobe. The right lobe measures 6.5 x 3.6 x 2.4 cm. The left lobe measures 4.3 x 2.4 x 2.0 cm. The isthmus measures approximately 1.5 cm in length and 1.8 cm in width. The right lobe shows an intact anterior capsule with disruption of the posterior capsule. The left lobe shows a disrupted superior pole and posterior aspect. The anterior right lobe is inked blue, anterior left red, isthmus yellow, and posterior of both lobes black. . The right lobe is sectioned from superior to inferior a few scattered nodules measuring between 0.2 x 0.2 cm and 0.5 x 0.5 cm. The nodules make up less than 5% of the parenchyma with the uninvolved parenchyma being beefy, soft, and brown-red. No additional masses or lesions are identified. . The left lobe is sectioned from superior to inferior to reveal a few possible colloid nodules ranging from 0.1 x 0.1 to 0.3 x 0.3 cm. The largest possible nodule appears to occupy part of the isthmus. The rest of the parenchyma is soft and beefy brown-red. Licensed Retail Supervisor sections are submitted as follows: . C1: Right lobe superior C2-C3: Right lobe random sections with nodules C4: Inferior right lobe C5: Uninvolved parenchyma right lobe C6: Left lobe superior C7: Random possible nodules C8: Nodule occupying isthmus C9: Licensed Retail Supervisor full-thickness section C10: Inferior, perpendicular (SDY; 01/28/2018) SYU/SYU . 02 Pathologist provided ICD-10: D34, E04.1, E07.89 . 02 CPT . 499676, 337601, [id number] Specimen Comment: A courtesy copy of this report has been sent to Specimen Comment: [phone], . Specimen Comment: Report sent to / DR FORMAN Specimen Comment: A duplicate report has been generated due to demographic updates. Performed at: [facility] [address], [place], [place] [id number] MD Matthew Bryant MD Phone: [phone] Performed at: 02 [facility] [address], [place] [id number] MD Mango Wei MD Phone: [phone]
== END 2018-01-27 14:07 | disposition home or self-care (01) ==
LOC: SURG 08:57 → 4 NORTH 16:00 → UNDODISOB 01-27 14:07
PROVIDERS: ADMIT Specialist; ATTEND Specialist
DX: D49.7 Neoplasm of unspecified behavior of endocrine glands and other parts of nervous system (principal); E07.9 Disorder of thyroid, unspecified; J44.9 Chronic obstructive pulmonary disease, unspecified; Z87.891 Personal history of nicotine dependence
CPT/HCPCS: 36415; 80053; 85025; 88305; 88307; 96374; 96375; 96376; A7015; G0378; G0379; J1100; J2001; J2370; J2405; J2704; J3010; J3490; J7120

== ENCOUNTER → 2018-06-02 | Outpatient (CLI) | payer OTHER ==
[~2018-06-02] MED LIST changes: +ALBU2.5V8 INH; -BENZOIN TP ONE; -HYDROmorphone 2 MG/ML VIAL IV PRN; -IV RINGERS,LACTATED 1000ML 1,000 ML IV SCH; -LIDOCAINE 1% PF 2 ML VIAL. ID PRN; -LIDOCAINE 2% PF Vial for OR 5 ML VIAL. ONE; +MONT10TA9 PO; -MORPHINE SULFATE 2 MG/ML VIAL. IV PRN; -ONDANSETRON PF 4 MG/2 ML VIAL. IV PRN; -PROCHLORPERAZINE 10 MG/2 ML VIAL. IV PRN; -PROPOFOL 20 ML IV ONE; -ROCURONIUM 50 MG/5 ML VIAL. ONE; -fentaNYL PF VIAL 100 MCG/2 ML VIAL IV PRN
--- NOTE | 2018-06-02 14:20 | RAD ---
Chest CT without contrast Clinical indications: Lung nodule follow-up. COMPARISON: November 04, 2017. TECHNIQUE: Noncontrast helical CT scanning of the chest was performed. Without contrast, the sensitivity to detect organ pathology is decreased. PQRS compliance Statement One or more of the following individualized dose reduction techniques were utilized for this study: 1. Automated exposure control 2. Adjustment of the mA and/or kV according to patient size 3. Use of iterative reconstruction technique FINDINGS: Calcified left hilar lymph nodes are seen due to old granulomatous disease. Mediastinal lymph nodes seen previously are stable. Residual nodular thymic tissue within the anterior mediastinum is unchanged. No focal aneurysmal dilatation of the thoracic aorta is seen. Mild ectasia of the ascending aorta is unchanged from the previous study. Heart size is normal and no pericardial effusion is evident. No pleural effusion or pneumothorax is seen. Bullous emphysema is seen bilaterally. Again seen are 2 irregular nodular infiltrates within the central lateral aspect of the right upper lobe which are stable. There is mild lateral pleural thickening within the right upper lobe in this area which has increased slightly. In addition, there is a new nodular infiltrate within the medial segment of the right middle lobe. Dilated bronchi are seen extending into this area. Therefore, this could represent a new inflammatory or infectious process here. No new lung infiltrate is seen on the left side. The proximal bronchial tree is patent otherwise. No lytic process is seen. No adrenal mass is evident. IMPRESSION: No change in size size of irregular nodular infiltrates within the right upper lobe. There is a mild increase in plaque-like pleural thickening laterally within right upper lobe. Therefore, continued chest CT follow-up in 6 months is recommended. New nodular lung infiltrate within the medial segment of the right middle lobe in association with bronchiectasis. Therefore this represents an inflammatory or infectious process. Severe bilateral bullous emphysema is present within the upper lobes. Electronically signed by: Arthur Bland MD (06/02/2018 2:17 PM) [place] [id number]
== END | disposition home or self-care (01) ==
LOC: CT 09:30
PROVIDERS: ATTEND Internal Medicine Pulmonary Disease
DX: J43.8 Other emphysema (principal); J92.9 Pleural plaque without asbestos; R91.1 Solitary pulmonary nodule; J47.9 Bronchiectasis, uncomplicated; I89.8 Other specified noninfective disorders of lymphatic vessels and lymph nodes; I77.819 Aortic ectasia, unspecified site; R91.8 Other nonspecific abnormal finding of lung field
CPT/HCPCS: 71250

== ENCOUNTER 2021-03-17 10:09 | Inpatient (IN) | payer MEDICAID, OTHER ==
[~2021-03-17] VITALS: Ht 175.3 cm; Wt 75.3 kg
[~2021-03-17 10:09] MED LIST changes: +DOXY100T PO; +LEVO75TA90 PO; +MONT10TA49 PO; -MONT10TA9 PO
--- NOTE | 2021-03-17 11:13 | PHYS DOC ---
Past Medical History Past Medical History: COPD, Hypothyroid Past Surgical History: Appendectomy, Other Additional Past Surgical Histo: THYROID, ARM Smoking Status: Current Every Day Smoker Alcohol Use: Occasionally Drug Use: None General Adult EDM: Chief Complaint: SHORTNESS OF BREATH HPI: HPI: Patient is a 55-year-old male that presented today via [facility] with complaint of difficulty breathing. Patient states that around 1:00 today he believes he was bit by a brown recluse spider in his right calf, and he said he woke up this morning around 9:00 with shortness of air. Patient states that he does have a history of COPD and does smoke on a daily basis but he is trying to quit, patient was unable to give me much more of a history the night due to the increase work of breathing the patient had. Patient states that he has had 2 Covid vaccines and a booster, but has not had an influenza vaccine. Patient denies chest pain, fever, nausea vomiting, or diarrhea. Review of Systems: Review of Systems: Constitutional: Denies fever or chills. [] Eyes: Denies change in visual acuity. [] HENT: Denies nasal congestion or sore throat. [] Respiratory: shortness of breath. [] Cardiovascular: Denies chest pain or edema. [] GI: Denies abdominal pain, nausea, vomiting, bloody stools or diarrhea. [] : Denies dysuria. [] Musculoskeletal: Denies back pain or joint pain. [] Integument: Denies rash. [] Neurologic: Denies headache, focal weakness or sensory changes. [] Endocrine: Denies polyuria or polydipsia. [] Lymphatic: Denies swollen glands. [] Psychiatric: Denies depression or anxiety. [] Heart Score: C/O Chest Pain: N/A Risk Factors: Risk Factors: DM, Current or recent (<one month) smoker, HTN, HLP, family history of CAD, obesity. Risk Scores: Score 0 - 3: 2.5% MACE over next 6 weeks - Discharge Home Score 4 - 6: 20.3% MACE over next 6 weeks - Admit for Clinical Observation Score 7 - 10: 72.7% MACE over next 6 weeks - Early Invasive Strategies Current Medications: Current Medications Medications (Trade) Dose Ordered Sig/Laila Start Time Stop Time Status Last Admin Dose Admin Albuterol/ Ipratropium (Duoneb) 3 ml 1X ONCE 03/17/21 11:15 03/17/21 11:16 Allergies: Allergies: Allergies Coded Allergies Type Severity Reaction Last Updated Verified No Known Drug Allergies 01/20/18 No Physical Exam: PE: Constitutional: Well developed, well nourished, moderate distress, non-toxic appearance. [] HENT: Normocephalic, atraumatic, bilateral external ears normal, oropharynx moist, no oral exudates, nose normal. [] Eyes: PERRLA, EOMI, conjunctiva normal, no discharge. [] Neck: Normal range of motion, no tenderness, supple, no stridor. [] Cardiovascular:Heart rate tachycardia Lungs & Thorax: Bilateral breath sounds diminished bilaterally Abdomen: Bowel sounds normal, soft, no tenderness, no masses, no pulsatile masses. [] Skin: Warm, dry, no erythema, no rash. [] Back: No tenderness, no CVA tenderness. [] Extremities: No tenderness, no cyanosis, no clubbing, ROM intact, no edema, ecchymotic area measuring about 3 cm x 3 cm on the back of the right calf noted, no erythema or warmth or swelling noted in this area. Pedal pulses are 2+ cap refill less than 2 seconds Neurologic: Alert and oriented X 3, normal motor function, normal sensory function, no focal deficits noted. [] Psychologic: Affect normal, judgement normal, mood anxious. [] Current Patient Data: Labs: Laboratory Tests Test 03/17/21 11:06 03/17/21 11:15 Influenza Type A Antigen Negative Influenza Type B Antigen Negative SARS-CoV-2 Antigen (Rapid) Negative White Blood Count 10.6 x10^3/uL Red Blood Count 5.45 x10^6/uL Hemoglobin 16.0 g/dL Hematocrit 48.0 % Mean Corpuscular Volume 88 fL Mean Corpuscular Hemoglobin 29 pg Mean Corpuscular Hemoglobin Concent 33 g/dL Red Cell Distribution Width 13.9 % Platelet Count 321 x10^3/uL Neutrophils (%) (Auto) 88 % Lymphocytes (%) (Auto) 2 % Monocytes (%) (Auto) 5 % Eosinophils (%) (Auto) 5 % Basophils (%) (Auto) 0 % Neutrophils # (Auto) 9.3 x10^3/uL Lymphocytes # (Auto) 0.2 x10^3/uL Monocytes # (Auto) 0.5 x10^3/uL Eosinophils # (Auto) 0.6 x10^3/uL Basophils # (Auto) 0.0 x10^3/uL Segmented Neutrophils % 85 % Band Neutrophils % 5 % Lymphocytes % 2 % Monocytes % 4 % Eosinophils % 4 % Toxic Vacuolation Present Platelet Estimate Adequate Platelet Clumps, EDTA Present Anisocytosis Slight D-Dimer (Ludmila) 1.32 ug/mlFEU Sodium Level 141 mmol/L Potassium Level 3.9 mmol/L Chloride Level 103 mmol/L Carbon Dioxide Level 28 mmol/L Anion Gap 10 Blood Urea Nitrogen 14 mg/dL Creatinine 1.1 mg/dL Estimated GFR (Cockcroft-Gault) 84.4 BUN/Creatinine Ratio 13 Glucose Level 99 mg/dL Lactic Acid Level 2.6 mmol/L Calcium Level 9.0 mg/dL Total Bilirubin 1.1 mg/dL Aspartate Amino Transf (AST/SGOT) 17 U/L Alanine Aminotransferase (ALT/SGPT) 21 U/L Alkaline Phosphatase 69 U/L Troponin I High Sensitivity 4 ng/L Total Protein 8.1 g/dL Albumin 3.4 g/dL Albumin/Globulin Ratio 0.7 Current Medications Medications (Trade) Dose Ordered Sig/Laila Route PRN Reason Start Time Stop Time Status Last Admin Dose Admin Albuterol/ Ipratropium (Duoneb) 3 ml 1X ONCE NEB 03/17/21 11:15 03/17/21 11:16 DC Sodium Chloride 1,000 ml @ 999 mls/hr 1X ONCE IV 03/17/21 11:30 03/17/21 12:30 DC 03/17/21 11:28 Dexamethasone (Decadron) 10 mg 1X ONCE PO 03/17/21 11:30 03/17/21 11:31 DC 03/17/21 11:29 Iohexol (Omnipaque 350 Mg/ml) 100 ml 1X ONCE IV 03/17/21 12:45 03/17/21 12:46 DC Vital Signs: Vital Signs Date Time Temp Pulse Resp B/P (MAP) Pulse Ox O2 Delivery O2 Flow Rate FiO2 03/17/21 12:31 132 25 170/70 (103) 94 Room Air 03/17/21 12:01 132 126/79 (95) 97 Room Air 03/17/21 11:51 95 Room Air 03/17/21 11:35 128 14 122/76 (91) 93 Room Air 03/17/21 11:01 108/65 (79) Room Air 03/17/21 10:23 98.9 132 26 122/69 (86) 96 Room Air 98.9 Vital Signs Date Time Temp Pulse Resp B/P (MAP) Pulse Ox O2 Delivery O2 Flow Rate FiO2 03/17/21 10:23 98.9 132 26 122/69 (86) 96 Room Air 98.9 EKG: EKG: EKG done at [address] Lemus at 1055 at a rate of 131 shows sinus tachycardia with no ectopy NE interval of 104 ms with a QTC of 513 ms no STEMI [] Radiology/Procedures: Radiology/Procedures: [REASON: soa PROCEDURE: CHEST AP ONLY EXAM: Chest, single view. HISTORY: Shortness of air. COMPARISON: 09/24/2018 FINDINGS: A frontal view of the chest obtained. There is severe emphysema with right greater than left apical bullae and bilateral multifocal pleural parenchymal scarring. Or superimposed bilateral lower lobe atelectasis or interstitial infiltrate. There is no convincing pleural effusion or pneumothorax. The heart is normal in size. There are calcified granulomas. IMPRESSION: 1. Bilateral lower lobe atelectasis or infiltrate. 2. Severe bullous emphysema. Electronically signed by: Marci Alvarez MD (03/17/2021 11:33 AM) [id number] REASON: elevated ddimer, soa PROCEDURE: CT ANGIOGRAPHY CHEST Examination: CT angiography chest with IV contrast HISTORY: elevated d-dimer, shortness of breath COMPARISON: 08/04/2017 TECHNIQUE: Axial CT angiographic images of chest performed with IV contrast. Coronal and sagittal 3-D MIP reformats are performed Exposure: One or more of the following individualized dose reduction techniques were utilized for this examination: 1. Automated exposure control 2. Adjustment of the mA and/or kV according to patient size 3. Use of iterative reconstruction technique FINDINGS: The central airways are patent. The heart size grossly appears unremarkable. The ascending aorta measures 3.8 cm in transverse dimension. No radiologically significant mediastinal lymphadenopathy. There is not enough contrast within the pulmonary artery and its branches for evaluation of pulmonary embolism. Severe bilateral lung emphysematous changes. Large bullous changes identified in the apical lungs. Small scarring or infiltrate right upper lobe of the lung appear similar to prior exam. There is focal consolidation or mass identified in the left lower lobe of the lung measuring 6.5 x 3.4 cm. There are mild patchy airspace opacities identified in the left lung base and right middle lobe of the lung likely infiltrates. The liver, spleen, adrenals grossly appears unremarkable. Moderate degenerative changes thoracic spine. IMPRESSION: 1. Focal consolidation or mass identified in the left lower lobe of the lung measuring 6.5 x 3.4 cm could be pneumonia or neoplasm. Consider PET/CT scan. 2. There is not enough contrast within the pulmonary artery and its branches for evaluation of pulmonary embolism. 3. Severe bilateral lung emphysematous changes. Large bullous changes identified in the apical lungs. 4. Mild patchy airspace opacities identified in the left lung base and right middle lobe of the lung likely infiltrates. Electronically signed by: Aleksandar Whelan MD (03/17/2021 1:20 PM) [id number] ] Course & Med Decision Making: Course & Med Decision Making Pertinent Labs and Imaging studies reviewed. (See chart for details) [] Dragon Disclaimer: Dragon Disclaimer: This electronic medical record was generated, in whole or in part, using a voice recognition dictation system. Departure Departure Impression: Primary Impression: Shortness of breath Additional Impressions: Acute exacerbation of chronic obstructive pulmonary disease (COPD) Lung mass Disposition: ADMITTED INPATIENT Admitting Physician: Mera Forman Condition: STABLE Referrals: MERA FORMAN MD (PCP) ROSHAN VALDEZ APRN Mar 17, 2021 11:13
[2021-03-17] MEDS ORDERED: IPRATRPIUM/ALBUTEROL 0.5/2.5MG 3 ML NEBU. NEB ONE (11:15)
[2021-03-17] MEDS ORDERED: IV NORMAL SALINE 1000ML BAG 1,000 ML IV ONE (11:30)
[2021-03-17] MEDS ORDERED: DEXAMETHASONE 4 MG TABLET PO ONE (11:30)
[2021-03-17 11:34] LABS: INFLUENZA A PATIENT NEGATIVE (NEGATIVE); INFLUENZA B PATIENT NEGATIVE (NEGATIVE)
--- NOTE | 2021-03-17 11:35 | RAD ---
EXAM: Chest, single view. HISTORY: Shortness of air. COMPARISON: 09/24/2018 FINDINGS: A frontal view of the chest obtained. There is severe emphysema with right greater than lef t apical bullae and bilateral multifocal pleural parenchymal scarring. Or superimposed bilateral lowe r lobe atelectasis or interstitial infiltrate. There is no convincing pleural effusion or pneumothora x. The heart is normal in size. There are calcified granulomas. IMPRESSION: 1. Bilateral lower lobe atelectasis or infiltrate. 2. Severe bullous emphysema. Electronically signed by: Marci Alvarez MD (03/17/2021 11:33 AM) [id number]
[2021-03-17 11:37] LABS: BASO % 0 % (0-3); EOS # 0.6 x10^3/uL (0.0-0.7); EOS % 5 % (0-3); LYMPH # 0.2 x10^3/uL (1.0-4.8); LYMPH % 2 % (24-48); MEAN CORPUSCULAR HEMOGLOBIN 29 pg (25-35); MEAN CORPUSCULAR HGB CONC 33 g/dL (31-37); MEAN CORPUSCULAR VOLUME 88 fL (79-100); MONO # 0.5 x10^3/uL (0.0-1.1); MONO % 5 % (0-9); NEUT # 9.3 x10^3/uL (1.8-7.7); NEUT % 88 % (31-73); PLATELET COUNT 321 x10^3/uL (140-400); RED BLOOD COUNT 5.45 x10^6/uL (4.30-5.70); RED CELL DISTRIBUTION WIDTH 13.9 % (11.5-14.5); WHITE BLOOD COUNT 10.6 x10^3/uL (4.0-11.0)
[2021-03-17 11:44] LABS: CREATININE 1.1 mg/dL (0.7-1.3); GFR 84.4; POTASSIUM 3.9 mmol/L (3.5-5.1)
[2021-03-17 11:51] LABS: ALBUMIN 3.4 g/dL (3.4-5.0); ALBUMIN/GLOBULIN RATIO 0.7 (1.0-1.7); TOTAL BILIRUBIN 1.1 mg/dL (0.2-1.0); TOTAL PROTEIN 8.1 g/dL (6.4-8.2)
--- NOTE | 2021-03-17 12:27 | EKG ---
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
[2021-03-17] MEDS ORDERED: IOHEXOL 350 MG/ML 100 ML VIAL. IV ONE (12:45)
[2021-03-17 12:48] LABS: % BANDS 5 % (0-9); % EOS 4 % (0-5); % LYMPHS 2 % (24-48); % MONOS 4 % (0-10); % SEGS 85 % (35-66); PLATELET CLUMP PRESENT; PLT ESTIMATE ADEQUATE (ADEQUATE)
[2021-03-17 12:49] LABS: ANISOCYTOSIS SLIGHT; TOXIC VACUOLATION PRESENT
--- NOTE | 2021-03-17 13:23 | RAD ---
Examination: CT angiography chest with IV contrast HISTORY: elevated d-dimer, shortness of breath COMPARISON: 08/04/2017 TECHNIQUE: Axial CT angiographic images of chest performed with IV contrast. Coronal and sagittal 3-D MIP reform ats are performed Exposure: One or more of the following individualized dose reduction techniques were utilized for thi s examination: 1. Automated exposure control 2. Adjustment of the mA and/or kV according to patient size 3. Use of iterative reconstruction technique FINDINGS: The central airways are patent. The heart size grossly appears unremarkable. The ascending aorta kerwin ures 3.8 cm in transverse dimension. No radiologically significant mediastinal lymphadenopathy. There is not enough contrast within the pulmonary artery and its branches for evaluation of pulmonary embolism. Severe bilateral lung emphysematous changes. Large bullous changes identified in the apical lungs. Sm all scarring or infiltrate right upper lobe of the lung appear similar to prior exam. There is focal consolidation or mass identified in the left lower lobe of the lung measuring 6.5 x 3.4 cm. There are mild patchy airspace opacities identified in the left lung base and right middle lobe of the lung li chin infiltrates. The liver, spleen, adrenals grossly appears unremarkable. Moderate degenerative changes thoracic spine. IMPRESSION: 1. Focal consolidation or mass identified in the left lower lobe of the lung measuring 6.5 x 3.4 cm could be pneumonia or neoplasm. Consider PET/CT scan. 2. There is not enough contrast within the pulmonary artery and its branches for evaluation of pulmo nary embolism. 3. Severe bilateral lung emphysematous changes. Large bullous changes identified in the apical lungs . 4. Mild patchy airspace opacities identified in the left lung base and right middle lobe of the lung likely infiltrates. Electronically signed by: Aleksandar Whelan MD (03/17/2021 1:20 PM) [id number]
[2021-03-17] MEDS: IPRATRPIUM/ALBUTEROL 0.5/2.5MG 3 ML NEBU. NEB SCH ×2 (16:00→20:00)
[2021-03-17] MEDS: IV NORMAL SALINE 1000ML BAG 1,000 ML IV SCH (16:00)
[2021-03-17] MEDS: HYDROcodone/APAP 5/325MG 1 TAB TABLET PO PRN ×2 (16:06→23:53)
[2021-03-17] MEDS ORDERED: ALBUTEROL SULFATE 2.5 MG/3 ML NEBU. INH PRN (16:45)
--- NOTE | 2021-03-17 18:35 | NUR ---
The patient, SAV MEREDITH, 55 y/o, M admitted by MANNY FORMAN MD, was given written information regarding hospital policies, unit procedures and contact persons. Valuables were checked and left with patient.
[2021-03-17 19:00] VITALS: BP 125/78
[2021-03-17 19:01] VITALS: BP 112/67
[2021-03-17 22:48] VITALS: BP 122/72
[2021-03-17] MEDS ORDERED: ALBUTEROL SULFATE 8GM INHALER. INH PRN (23:30)
[2021-03-17] MEDS: IPRATROPIUM/ALBUTEROL 20/100mcg/INH INHALER. INH SCH (23:30)
[2021-03-18 03:27] VITALS: BP 116/70
[2021-03-18] MEDS: LEVOTHYROXINE 75 MCG TABLET PO SCH (04:38)
[2021-03-18 07:00] VITALS: BP 169/88
[2021-03-18] MEDS ORDERED: DEXAMETHASONE 4 MG TABLET PO ONE (08:00)
[2021-03-18] MEDS: IPRATROPIUM/ALBUTEROL 20/100mcg/INH INHALER. INH SCH (08:00)
--- NOTE | 2021-03-18 08:25 | PDOC ---
Provider Note Date of Service: DATE: 03/18/21 TIME: 08:17 Provider Note IR NOTE Consulted for possible biopsy of LLL consolidation. Patient admitted with acute SOB in setting of severe bullous emphysema. Current smoker. CT shows nonspecific consolidation LLL along diaphram. Severe bullous emphysema. Was started on steroids/treatment for COPD exacerbation as well as IV antibiotic for possible pneumonia. Given higher risk nature of biopsy for this patietn, Recommend 8-12 week follow up scan after treatment of pneumonia and COPD exacerbation. If lesion persists would consider biopsy. Justifications for Admission Other Justification EVER CASTILLO MD Mar 18, 2021 08:25
--- NOTE | 2021-03-18 09:20 | PDOC ---
Provider Note Date of Service: DATE: 03/18/21 TIME: 09:19 Provider Note Pt seen.H&P dictated.#[id number] Justifications for Admission Other Justification MANNY FORMAN MD Mar 18, 2021 09:20
[2021-03-18] MEDS: MONTELUKAST SODIUM 10 MG TABLET. PO SCH (09:26)
[2021-03-18] MEDS: HYDROcodone/APAP 5/325MG 1 TAB TABLET PO PRN ×2 (09:34→21:54)
[2021-03-18] MEDS ORDERED: ALBUTEROL SULFATE 2.5 MG/3 ML NEBU. NEB SCH ×2 (09:42→12:00)
--- NOTE | 2021-03-18 10:09 | HP ---
DATE OF SERVICE: 03/18/2021 ADMIT DATE: 03/17/2021 MEDICAL HISTORY AND PHYSICAL REASON FOR ADMISSION TO THE HOSPITAL: 1. Pneumonia, possible postobstructive pneumonia. 2. Brown recluse spider bite, left calf. HISTORY OF PRESENT ILLNESS: The patient is a 55-year-old male who has a history of chronic COPD and he sees Dr. cShmid and is on inhalers. He has been pretty stable. He had a brown recluse spider as per the patient, he says he found something bite in his calf. In the night, he slapped his calf and then he noticed some spider and it was looked like a dark brown recluse spider and the patient came to the ER because of that. In the meantime, the patient was tachycardic, tachypneic and x-ray shows infiltrate in the lung, had a CT scan shows a left lower lobe, possible postobstructive pneumonia. The patient was admitted to the hospital, was started on Levaquin and dexamethasone. PAST MEDICAL HISTORY: COPD, hypothyroidism. PAST SURGICAL HISTORY: Thyroid surgery, appendectomy. ALLERGIES: No known drug allergies. MEDICATIONS AT HOME: The patient takes albuterol nebulizer inhaler, Advair 250/50 twice a day, levothyroxine 75 mcg daily, Singulair 10 mg daily and the nebulizer at home. He also on Spiriva. PERSONAL HISTORY: Smoked for 30 years, cut down to half a pack now. Denies alcohol or street drugs. FAMILY HISTORY: Hypertension. REVIEW OF SYSTEMS: Complains of cough, worried about brown recluse spider. Rest of the 14-system was reviewed and negative. PHYSICAL EXAMINATION: VITAL SIGNS: Temperature 98, pulse 132, respirations 20, blood pressure 122/69, 96 on room air. HEENT: Head is atraumatic. Pupils equal. Oral cavity, no congestion. NECK: Supple. Thyroid not enlarged. A scar of prior surgery. CHEST: Symmetrical. CARDIOVASCULAR: S1, S2. LUNGS: Diminished breath sounds. ABDOMEN: Soft. No mass palpable. EXTERNAL GENITALIA: No Barnard. RECTUM: Deferred. EXTREMITIES: No calf tenderness, no edema. NEUROLOGIC: No focal deficits. Moving extremities. SKIN: On examination of the left calf, the patient had a dark area of bruised skin in the calf area. The patient thinks it was a brown recluse spider bite. LABORATORY DATA: Shows a white count of 10, hemoglobin 16, platelets 321. INR 1.3. Electrolyte shows sodium 141, potassium 3.9, chloride 103, bicarb 28, BUN 14, creatinine 1.1. Lactic acid 2.6, came down to 1.3. LFTs normal. Troponin is negative. Influenza A and B negative. COVID screen was negative. COVID PCR was negative. Chest x-ray initially shows a lower lobe infiltrate, severe bullous emphysema. CT scan of the chest. No pulmonary embolism, but there was a focal consolidation mass, left lower lobe 6.5 cm x 3.5 cm, bilateral emphysematous changes, large villous apical lungs. FINAL IMPRESSION: 1. Postobstructive pneumonia. 2. Chronic emphysema. 3. Brown recluse spider. 4. History of hypothyroidism. 5. Smoking history, active smoker. PLAN: At this time, was admitted to the hospital, treated with Levaquin and dexamethasone. Pulmonary was consulted and see how he improves in the next couple of days. COVID test negative. We will hold off on DVT prophylaxis because of possible bronchoscopy.smoking counseling done. ZORAIDA DR: YRIS/enzo TID: [id number] [facility]
[2021-03-18 11:00] VITALS: BP 129/75
[2021-03-18] MEDS: IV NORMAL SALINE 1000ML BAG 1,000 ML IV SCH ×2 (11:45)
--- NOTE | 2021-03-18 11:48 | NUR ---
SW following. Discussed with RN, pt from home, room air, NPO, COVID-19 negative. Pulmonology and IR following. RN advised no SW needs at this time. SW will continue to follow.
[2021-03-18] MEDS: IPRATRPIUM/ALBUTEROL 0.5/2.5MG 3 ML NEBU. NEB SCH ×3 (12:00→20:25)
[2021-03-18 15:00] VITALS: BP 141/95
--- NOTE | 2021-03-18 18:39 | CONS ---
DATE OF CONSULTATION: 03/18/2021 ATTENDING PHYSICIAN: Mera Henry MD REASON FOR CONSULTATION: The patient is seen in pulmonary consultation at the request of Dr. Henry for abnormal CT chest. HISTORY OF PRESENT ILLNESS: The patient is a 55-year-old that presented with increasing shortness of breath, tachycardic, apparently had a possible brown recluse spider bite on his calf muscle also. He was evaluated and found to have an elevated D-dimer. Subsequently, a CT angiogram was performed. The CT angiogram reveals severe emphysematous changes, bullous emphysema in the apical lung ko. There was a focal consolidation in the left lower lobe measuring 7.5 x 3.4 cm. I was asked to see him in consultation. There was also mild patchy airspace identified in the left lung base. The patient denies any hemoptysis. No fever, chills or night sweats. He is up to date on COVID-19 vaccination. He continues to smoke. PAST MEDICAL HISTORY: Remarkable for: 1. Previously abnormal CT chest on the right side. He was followed in the office. He has not been in the office since 2019. He had a PET negative scan in the past. The patient had a CT chest on 06/02/2018, which revealed a new nodular infiltrate within the medial aspect of the right middle lobe associated with bronchiectasis, he has had a previous negative PET scan dated 09/01/2017. 2. COPD of the emphysematous type. 3. Hypothyroidism. 4. Tobacco dependent. PAST SURGICAL HISTORY: Status post thyroid surgery and appendectomy. ALLERGIES: No known drug allergies. HOME MEDICATION LIST: Included Advair p.r.n., albuterol, Singulair. FAMILY HISTORY: Hypertension. SOCIAL HISTORY: He continues to smoke, has been smoking most of his adult life. He has worked in a [employer] industry in the past. CURRENT MEDICATIONS: List was reviewed. REVIEW OF SYSTEMS: As indicated above, otherwise a 10-point system was reviewed and negative. PHYSICAL EXAMINATION: VITAL SIGNS: Stable. O2 saturation was greater than 92%. HEENT: Eyes: The sclerae were nonicteric. NECK: Jugular venous distention was not elevated. No lymphadenopathy. CHEST: Full expansion. LUNGS: Poor air flow with no wheezes. CARDIOVASCULAR: Regular rate and rhythm with S1, S2, no S3. ABDOMEN: Soft. EXTREMITIES: No clubbing, cyanosis or edema. LABORATORY DATA: Reviewed. White count was normal, hemoglobin and hematocrit were noted. Electrolytes were noted. CT reviewed. IMPRESSION: 1. Abnormal CT chest, suspect mainly consolidation from infection. With that being said, malignancy cannot be totally ruled out. 2. Acute exacerbation of chronic obstructive pulmonary disease. 3. Pneumonia. 4. Recent spider bite. 5. Severe emphysematous changes. 6. Tobacco dependent. 7. Previous PET scan in 2018 was negative for any malignancy. DISCUSSION: Case was discussed with Dr. Forbes, in the setting of his severe bullous emphysema and the current findings on the CT scan, we both agreed that the patient should be treated with antibiotics, repeat CT chest in 6-8 weeks. PLAN: 1. Continue current care. 2. Follow up with me in 6-8 weeks with a repeat CT chest. 3. Discharge home in the next 24-48 hours with Augmentin for 6 weeks, the patient has bad dentition. 4. As indicated above, the patient is not a candidate at this time for any biopsies, given the high risk of complication with his severe bullous emphysematous changes. I do appreciate the privilege in sharing in the patient's care. The patient was instructed on the importance of discontinued tobacco use, he will undergo a 6-minute walk prior to discharge. OLAF JONES: Murtaza TID: [id number]
[2021-03-18 19:00] VITALS: BP 122/77
[2021-03-18 23:00] VITALS: BP 133/79
[2021-03-19 03:00] VITALS: BP 122/76
[2021-03-19] MEDS: LEVOTHYROXINE 75 MCG TABLET PO SCH (05:58)
[2021-03-19] MEDS: IPRATRPIUM/ALBUTEROL 0.5/2.5MG 3 ML NEBU. NEB SCH ×3 (06:56→15:20)
[2021-03-19 07:00] VITALS: BP 124/76
[2021-03-19 07:17] LABS: BASO # 0.1 x10^3/uL (0.0-0.2); BASO % 0 % (0-3); CALCIUM 8.4 mg/dL (8.5-10.1); CREATININE 0.8 mg/dL (0.7-1.3); EOS # 0.1 x10^3/uL (0.0-0.7); EOS % 0 % (0-3); GFR 121.9; HEMATOCRIT 40.5 % (39.0-53.0); LYMPH # 0.7 x10^3/uL (1.0-4.8); LYMPH % 5 % (24-48); MAGNESIUM 2.1 mg/dL (1.8-2.4); MEAN CORPUSCULAR HEMOGLOBIN 29 pg (25-35); MEAN CORPUSCULAR HGB CONC 32 g/dL (31-37); MEAN CORPUSCULAR VOLUME 89 fL (79-100); MONO # 1.1 x10^3/uL (0.0-1.1); MONO % 7 % (0-9); NEUT # 13.1 x10^3/uL (1.8-7.7); NEUT % 88 % (31-73); PLATELET COUNT 307 x10^3/uL (140-400); POTASSIUM 4.4 mmol/L (3.5-5.1); RED BLOOD COUNT 4.56 x10^6/uL (4.30-5.70); RED CELL DISTRIBUTION WIDTH 13.7 % (11.5-14.5)
[2021-03-19] MEDS ORDERED: ACETAMINOPHEN 325 MG TABLET. PO PRN (07:30)
[2021-03-19] MEDS ORDERED: DEXAMETHASONE 4 MG TABLET PO SCH (08:00)
[2021-03-19] MEDS: MONTELUKAST SODIUM 10 MG TABLET. PO SCH (08:15)
[2021-03-19] MEDS ORDERED: VARENICLINE 0.5 MG TABLET. PO SCH (09:00)
[2021-03-19] MEDS ORDERED: NON FORMULARY ITEM (Tiotropium Bromide (Spiriva) 1 CAP) IH SCH (09:00)
[2021-03-19 11:00] VITALS: BP 131/83
--- NOTE | 2021-03-19 14:14 | PDOC ---
PULMONARY PROGRESS NOTES DATE: 03/19/21 TIME: 14:13 Vitals Vital Signs Date Time Temp Pulse Resp B/P (MAP) Pulse Ox O2 Delivery O2 Flow Rate FiO2 03/19/21 11:11 96 Room Air 03/19/21 11:00 92.3 91 20 131/83 (99) 92.3 03/19/21 07:00 91.0 General: Alert, Oriented X4 HEENT: Other Lungs: Clear Cardiovascular: S1, S2 Abdomen: Soft, Non-tender Extremities: No Edema Labs Laboratory Tests Test 03/17/21 14:48 03/19/21 05:50 Lactic Acid Level 1.3 mmol/L (0.4-2.0) White Blood Count 15.0 x10^3/uL (4.0-11.0) Red Blood Count 4.56 x10^6/uL (4.30-5.70) Hemoglobin 13.0 g/dL (13.0-17.5) Hematocrit 40.5 % (39.0-53.0) Mean Corpuscular Volume 89 fL (79-100) Mean Corpuscular Hemoglobin 29 pg (25-35) Mean Corpuscular Hemoglobin Concent 32 g/dL (31-37) Red Cell Distribution Width 13.7 % (11.5-14.5) Platelet Count 307 x10^3/uL (140-400) Neutrophils (%) (Auto) 88 % (31-73) Lymphocytes (%) (Auto) 5 % (24-48) Monocytes (%) (Auto) 7 % (0-9) Eosinophils (%) (Auto) 0 % (0-3) Basophils (%) (Auto) 0 % (0-3) Neutrophils # (Auto) 13.1 x10^3/uL (1.8-7.7) Lymphocytes # (Auto) 0.7 x10^3/uL (1.0-4.8) Monocytes # (Auto) 1.1 x10^3/uL (0.0-1.1) Eosinophils # (Auto) 0.1 x10^3/uL (0.0-0.7) Basophils # (Auto) 0.1 x10^3/uL (0.0-0.2) Sodium Level 143 mmol/L (136-145) Potassium Level 4.4 mmol/L (3.5-5.1) Chloride Level 108 mmol/L (98-107) Carbon Dioxide Level 27 mmol/L (21-32) Anion Gap 8 (6-14) Blood Urea Nitrogen 15 mg/dL (8-26) Creatinine 0.8 mg/dL (0.7-1.3) Estimated GFR (Cockcroft-Gault) 121.9 Glucose Level 110 mg/dL (70-99) Calcium Level 8.4 mg/dL (8.5-10.1) Magnesium Level 2.1 mg/dL (1.8-2.4) Laboratory Tests Test 03/19/21 05:50 White Blood Count 15.0 x10^3/uL (4.0-11.0) Red Blood Count 4.56 x10^6/uL (4.30-5.70) Hemoglobin 13.0 g/dL (13.0-17.5) Hematocrit 40.5 % (39.0-53.0) Mean Corpuscular Volume 89 fL (79-100) Mean Corpuscular Hemoglobin 29 pg (25-35) Mean Corpuscular Hemoglobin Concent 32 g/dL (31-37) Red Cell Distribution Width 13.7 % (11.5-14.5) Platelet Count 307 x10^3/uL (140-400) Neutrophils (%) (Auto) 88 % (31-73) Lymphocytes (%) (Auto) 5 % (24-48) Monocytes (%) (Auto) 7 % (0-9) Eosinophils (%) (Auto) 0 % (0-3) Basophils (%) (Auto) 0 % (0-3) Neutrophils # (Auto) 13.1 x10^3/uL (1.8-7.7) Lymphocytes # (Auto) 0.7 x10^3/uL (1.0-4.8) Monocytes # (Auto) 1.1 x10^3/uL (0.0-1.1) Eosinophils # (Auto) 0.1 x10^3/uL (0.0-0.7) Basophils # (Auto) 0.1 x10^3/uL (0.0-0.2) Sodium Level 143 mmol/L (136-145) Potassium Level 4.4 mmol/L (3.5-5.1) Chloride Level 108 mmol/L (98-107) Carbon Dioxide Level 27 mmol/L (21-32) Anion Gap 8 (6-14) Blood Urea Nitrogen 15 mg/dL (8-26) Creatinine 0.8 mg/dL (0.7-1.3) Estimated GFR (Cockcroft-Gault) 121.9 Glucose Level 110 mg/dL (70-99) Calcium Level 8.4 mg/dL (8.5-10.1) Magnesium Level 2.1 mg/dL (1.8-2.4) Medications Active Scripts Medications Dose Route/Sig Max Daily Dose Days Date Category Prednisone 50 Mg Tablet 1 Tab PO DAILY 09/24/18 Rx Doxycycline Hyclate 100 Mg Tablet 100 Mg PO BID 7 09/24/18 Rx Synthroid (Levothyroxine Sodium) 75 Mcg Tablet 1 Tab PO DAILY 09/23/18 Reported Proair Hfa Inhaler (Albuterol Sulfate) 8.5 Gm Hfa.aer.ad 1 Puff INH PRN Q6HRS PRN 01/26/18 Reported Montelukast Sodium Tablet (Montelukast Sodium) 10 Mg Tablet 1 Tab PO DAILY 01/26/18 Reported Spiriva (Tiotropium [place]) 18 Mcg Cap.w.dev 1 Cap IH DAILY 01/24/18 Reported Advair 250-50 Diskus (Fluticasone/Salmeterol) 1 Each Disk.w.dev 1 Each IH BID 02/05/13 Reported Albuterol Sulfate Neb Soln (Albuterol Sulfate) 0.63 Mg/3 Ml Vial.neb 0.63 Mg IH 01/26/13 Reported Impression . IMPRESSION: 1. Abnormal CT chest, suspect mainly consolidation from infection. With that being said, malignancy cannot be totally ruled out. 2. Acute exacerbation of chronic obstructive pulmonary disease. 3. Pneumonia. 4. Recent spider bite. 5. Severe emphysematous changes. 6. Tobacco dependent. 7. Previous PET scan in 2018 was negative for any malignancy. DISCUSSION: Case was discussed with Dr. Forbes, in the setting of his severe bullous emphysema and the current findings on the CT scan, we both agreed that the patient should be treated with antibiotics, repeat CT chest in 6-8 weeks. Plan . PLAN: 1. Continue current care. 2. Follow up with me in 6-8 weeks with a repeat CT chest. 3. Discharge home in the next 24-48 hours with Augmentin for 6 weeks, the patient has bad dentition. 4. As indicated above, the patient is not a candidate at this time for any biopsies, given the high risk of complication with his severe bullous emphysematous changes. I do appreciate the privilege in sharing in the patient's care. The patient was instructed on the importance of discontinued tobacco use, he will undergo a 6-minute walk prior to discharge. RONAL JULIEN MD Mar 19, 2021 14:14
[2021-03-19 15:00] VITALS: BP 126/66
[2021-03-19] MEDS ORDERED: AMOX1TAB58 PO (17:11)
[2021-03-19] MEDS ORDERED: DEXA4TAB63 PO (17:11)
[2021-03-19] MEDS ORDERED: NICO1PAT21 TP (17:34)
--- NOTE | 2021-03-19 17:36 | PDOC ---
PROGRESS NOTES Date of Service: DATE: 03/19/21 TIME: 17:35 Subjective Subjective ready to go home Objective Objective Vital Signs Date Time Temp Pulse Resp B/P (MAP) Pulse Ox O2 Delivery O2 Flow Rate FiO2 03/19/21 15:20 99 Room Air 03/19/21 15:00 97.8 100 22 126/66 (86) 97.8 03/19/21 07:00 91.0 Intake and Output 03/19/21 07:00 Output Total 800 ml Balance -800 ml Output Urine Total 800 ml Physical Exam Abdomen: Soft Heart: Normal S1, Normal S2 Extremities: No clubbing General: Alert Lungs: Other (dec breath sounds) MUSCULOSKELETAL: No deformity Neck: No JVD Neuro: Normal speech Psych/Mental Status: Mental status NL Skin: No breakdown Diagnosis Problem List Problems Medical Problems: (1) Acute exacerbation of chronic obstructive pulmonary disease (COPD) Status: Acute (2) Lung mass Status: Acute (3) Shortness of breath Status: Acute Assessment Assessment Problems Medical Problems: (1) Acute exacerbation of chronic obstructive pulmonary disease (COPD) Status: Acute (2) Lung mass Status: Acute (3) Shortness of breath Status: Acute FINAL IMPRESSION: 1. Postobstructive pneumonia vs aspiration Pneumonia. 2. Chronic emphysema. 3. Brown recluse spider. 4. History of hypothyroidism. 5. Smoking history, active smoker. PLAN: Augmentin po bid for 6 weeks. dexamethasone for 5 days smoking counseling done nicoder patch 21 mg daily for 1 month. covid test -ve. too risky for CT guided Lung biopsy repeat ct ccchest in 6-8 weeks . f/u in the office in 1 week Plan Plan of Care Problems Medical Problems: (1) Acute exacerbation of chronic obstructive pulmonary disease (COPD) Status: Acute (2) Lung mass Status: Acute (3) Shortness of breath Status: Acute Comment Review of Relevant I have reviewed the following items [place] (where applicable) has been applied. Labs Laboratory Tests Test 03/19/21 05:50 White Blood Count 15.0 x10^3/uL (4.0-11.0) Red Blood Count 4.56 x10^6/uL (4.30-5.70) Hemoglobin 13.0 g/dL (13.0-17.5) Hematocrit 40.5 % (39.0-53.0) Mean Corpuscular Volume 89 fL (79-100) Mean Corpuscular Hemoglobin 29 pg (25-35) Mean Corpuscular Hemoglobin Concent 32 g/dL (31-37) Red Cell Distribution Width 13.7 % (11.5-14.5) Platelet Count 307 x10^3/uL (140-400) Neutrophils (%) (Auto) 88 % (31-73) Lymphocytes (%) (Auto) 5 % (24-48) Monocytes (%) (Auto) 7 % (0-9) Eosinophils (%) (Auto) 0 % (0-3) Basophils (%) (Auto) 0 % (0-3) Neutrophils # (Auto) 13.1 x10^3/uL (1.8-7.7) Lymphocytes # (Auto) 0.7 x10^3/uL (1.0-4.8) Monocytes # (Auto) 1.1 x10^3/uL (0.0-1.1) Eosinophils # (Auto) 0.1 x10^3/uL (0.0-0.7) Basophils # (Auto) 0.1 x10^3/uL (0.0-0.2) Sodium Level 143 mmol/L (136-145) Potassium Level 4.4 mmol/L (3.5-5.1) Chloride Level 108 mmol/L (98-107) Carbon Dioxide Level 27 mmol/L (21-32) Anion Gap 8 (6-14) Blood Urea Nitrogen 15 mg/dL (8-26) Creatinine 0.8 mg/dL (0.7-1.3) Estimated GFR (Cockcroft-Gault) 121.9 Glucose Level 110 mg/dL (70-99) Calcium Level 8.4 mg/dL (8.5-10.1) Magnesium Level 2.1 mg/dL (1.8-2.4) Microbiology 03/17/21 Blood Culture - Preliminary, Resulted NO GROWTH AFTER 2 DAYS Medications Current Medications Acetaminophen (Tylenol) 650 mg PRN Q6HRS PRN PO MILD PAIN / TEMP > 100.3'F Last administered on 03/19/21at 08:15; Start 03/19/21 at 07:30 Dexamethasone (Decadron) 4 mg DAILYWBKFT PO Last administered on 03/19/21at 08:15; Start 03/19/21 at 08:00 Lactobacillus Rhamnosus (Culturelle) 1 cap BID PO ; Start 03/19/21 at 21:00 Non-Formulary Medication (Tiotropium [place] (Spiriva)) 1 cap DAILY IH ; Start 03/19/21 at 09:00; Stop 03/18/21 at 09:28; Status DC Varenicline (Chantix) 0.5 mg DAILY PO ; Start 03/19/21 at 09:00 Vitals/I & O Vital Sign - Last 24 Hours 03/18/21 03/18/21 03/18/21 03/18/21 19:00 20:00 20:26 21:54 Temp 97.5 97.5 Pulse 98 Resp 16 B/P (MAP) 122/77 (92) Pulse Ox 96 99 99 O2 Delivery Room Air Room Air Room Air 03/18/21 03/18/21 03/19/21 03/19/21 22:25 23:00 03:00 06:57 Temp 97.7 97.8 97.7 97.8 Pulse 98 91 Resp 18 18 B/P (MAP) 133/79 (97) 122/76 (91) Pulse Ox 94 94 95 94 O2 Delivery Room Air Room Air 03/19/21 03/19/21 03/19/21 03/19/21 07:00 08:00 11:00 11:11 Temp 97.5 92.3 97.5 92.3 Pulse 112 91 Resp 24 20 B/P (MAP) 124/76 (92) 131/83 (99) Pulse Ox 91 92 96 O2 Delivery Room Air Room Air Room Air Room Air O2 Flow Rate 91.0 03/19/21 03/19/21 15:00 15:20 Temp 97.8 97.8 Pulse 100 Resp 22 B/P (MAP) 126/66 (86) Pulse Ox 94 99 O2 Delivery Room Air Room Air Intake and Output 03/18/21 03/18/21 03/19/21 15:00 23:00 07:00 Output Total 400 ml 400 ml Balance -400 ml -400 ml Justifications for Admission Other Justification MANNY FORMAN MD Mar 19, 2021 17:36
--- NOTE | 2021-03-19 18:15 | NUR ---
Patient escorted to ER entrance in wheelchair by Kaelyn RAJPUT and son to private vehicle, going home. Patient and son updated on discharge education. IV and telemonitor discontinued.
[2021-03-19] MEDS ORDERED: LACTOBACILLUS RHAMNOSUS GG 1 CAPSULE. PO SCH (21:00)
--- NOTE | 2021-03-20 15:58 | PDOC ---
Provider Note Date of Service: DATE: 03/20/21 TIME: 15:54 Provider Note Discharge summary dictated.#[id number] Justifications for Admission Other Justification MANNY FORMAN MD Mar 20, 2021 15:58
--- NOTE | 2021-03-21 16:15 | DS ---
DATE OF DISCHARGE: 03/19/2021 CONSULTATIONS: Yadira Schmid MD PROCEDURES DONE: CT chest. HOSPITAL COURSE: The patient was admitted for pneumonia. He was also found to have a spider bite in the calf, but he was having tachycardia and shortness of breath. X-ray shows infiltrate in the lung. CT angiogram negative for PE, but it showed around 6 x 4 cm consolidation in the left lower lobe. The patient was seen by Pulmonology. The patient had a CT scan prior and a PET scan 3 years ago in [address] of the chest 2018. At that time, he did not light up and it was felt that the patient may have aspiration pneumonia, has a bad dentition, so it was decided to treat with antibiotics. The patient was consulted with IR for biopsy of the lung mass, but the patient has severe emphysema and it was felt too risky to do needle biopsy. The patient was discharged home on Augmentin for 6 weeks. The patient is going to see Pulmonology after that. Repeat CT scan and further recommendations to follow after that. FINAL DIAGNOSES: 1. Pneumonia, left lower lobe, possible aspiration, silent, probably from bad dentition. 2. spider bite in the calf. 3. Severe emphysema. 4. Active smoker. DISPOSITION: Home. Smoking counseling was done. Nicotine patch was given. Antibiotics for 6 weeks. Augmentin, dexamethasone for 5 days and follow with Pulmonology in [address] scan after that. YRIS/LINO/LAYA DR: YRIS/enzo TID: [id number]
== END 2021-03-19 18:15 | disposition home or self-care (01) | DRG 179 ==
LOC: ER 10:09 → ED HOLD 14:10 → 5 NORTH 18:04
PROVIDERS: ADMIT Internal Medicine; ATTEND Internal Medicine
DX: J69.0 Pneumonitis due to inhalation of food and vomit (principal); E03.9 Hypothyroidism, unspecified; F17.200 Nicotine dependence, unspecified, uncomplicated; J43.9 Emphysema, unspecified; T63.331A Toxic effect of venom of brown recluse spider, accidental (unintentional), initial encounter; Z82.49 Family history of ischemic heart disease and other diseases of the circulatory system; Z90.49 Acquired absence of other specified parts of digestive tract; Y92.89 Other specified places as the place of occurrence of the external cause
CPT/HCPCS: 36415; 71045; 71275; 80048; 80053; 83605; 83735; 84484; 85007; 85025; 85379; 87040; 87428; 93005; 94618; 94640; 94760; 96361; 96365; J1956; J7030; U0003; 99285-25; G0378

== ENCOUNTER → 2021-05-15 | Outpatient (CLI) | payer MEDICAID ==
[~2021-05-15] MED LIST changes: +AMOX1TAB58 PO; +DEXA4TAB63 PO; +NICO1PAT21 TP
--- NOTE | 2021-05-15 12:08 | RAD ---
CT of the chest without contrast Indication: [Follow-up masslike consolidation, left lower lobe] Comparison study: [CT chest with contrast March 17, 2021 Technique: Multidetector CT imaging of the chest was performed without the administration of contrast Findings: The previously seen area of masslike consolidation in the basilar left lower lobe has essentially com pletely resolved. Minimal residual linear opacities are seen likely mild scarring or discoid atelecta sis. No pneumothorax or pleural effusion is identified. Severe bullous emphysema, with very large api ghanshyam blebs noted. The appearance is unchanged. Linear areas of scarring in the middle lobe are less pr ominent than on comparison study. Heart size is normal. Ascending aortic ectasia, measuring up to 4 c m, is grossly similar. No pericardial effusion is identified. Limited visualization of the upper abdo men demonstrates no acute changes. No acute osseous changes are identified. IMPRESSION: 1. Resolution of masslike consolidation in the basilar left lower lobe 2. Severe emphysematous changes, similar to comparison exams 3. 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 This is similar to comparison studies. Attenti on on follow-up studies recommended. CT DOSING PQRS STATEMENT: One or more of the following individualized dose reduction techniques were utilized for this examinat ion: 1. Automated exposure control 2. Adjustment of the mA and/or kV according to patient size 3. Use of iterative reconstruction technique Electronically signed by: Romeo Forbes MD (05/15/2021 12:06 PM) [id number]
== END ==
LOC: CT 11:32
PROVIDERS: ATTEND Internal Medicine
DX: J43.9 Emphysema, unspecified (principal); I77.810 Thoracic aortic ectasia
CPT/HCPCS: 71250